=== PATIENT | male | born 1935 | race Caucasian/White ===

== ENCOUNTER 2016-11-16 14:03 | Inpatient (IN) | payer MEDICARE, BC ==
[~2016-11-16] VITALS: Ht 177.8 cm; Wt 104.6 kg
[~2016-11-16 14:03] MED LIST: 1-ME1LIQ PO; B-COTAB41 PO; CLOP75 PO; COZA50TA PO
[2016-11-16 14:13] VITALS: BP 140/69; PULSE 60; RESP 18; TEMP 97.9; O2SAT 98
[2016-11-16] MEDS ORDERED: PLAV75TA29 PO (14:27)
[2016-11-16] MEDS ORDERED: LOSA50TA PO (14:27)
[2016-11-16] MEDS ORDERED: AMLO10TA2 PO (14:27)
--- NOTE | 2016-11-16 15:05 | PD ---
HPI Chief Complaint: Fall Time Seen by Provider: 14:57 Travel History International Travel<30 days: No Contact w/Intl Traveler<30days: No Traveled to known affect area: No History of Present Illness HPI This 81-year-old male is complaining of left-sided abdominal pain. He says that around 1:00 this afternoon he fell and landed on his left side. He feels like his left elbow went into this left side of his abdomen. Having a lot of pain in his abdomen since the fall. He feels like his abdomen has gotten a bit distended. He does take Plavix. He had an endarterectomy done 2 years ago and has been on Plavix since then. 2 years ago he had a fall and injured his right kidney and was urinating blood. 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) Neurologic: No Psychiatric: Yes (CLAUSTROPHOBIC) Reproductive: No Respiratory: Yes (SINUSITIS) Immunizations Current: Yes Thyroid Disease: No Tetanus Vaccination: < 5 Years Influenza Vaccination: No Past Surgical History Abdominal Surgery: No Body Medical Devices: DENTAL IMPLANTS Cardiac Surgery: Yes (ENDARECTOMY CAROTID RT) Ear Surgery: No Endocrine Surgery: No Eye Surgery: Yes Gynecologic Surgery: No Joint Replacement: No Neurologic Surgery: No Oral Surgery: Yes (SINUS SURGERY; DENTAL IMPLANTS) Pacemaker: No Thoracic Surgery: No Tonsillectomy: Yes Other Surgery: Yes (OLFACTORY NERVE) Social History Alcohol Use: Yes (2 DAILY) Tobacco Use: No (quit 1986) Substance Use: No Allergies-Medications (Allergen,Severity, Reaction): Coded Allergies: No Known Allergies (Verified , 11/16/16) Reported Meds & Prescriptions Reported Meds & Active Scripts Active Reported Plavix (Clopidogrel Bisulfate) 75 Mg Tab 75 Mg PO DAILY Amlodipine (Amlodipine Besylate) 10 Mg Tab 10 Mg PO DAILY Losartan (Losartan Potassium) 50 Mg Tab 50 Mg PO DAILY Review of Systems General / Constitutional: No: Fever, Chills Eyes: No: Diploplia HENT: No: Headaches, Vertigo Cardiovascular: No: Chest Pain or Discomfort, Palpitations Respiratory: No: Cough, Shortness of Breath Gastrointestinal: Positive: Nausea Genitourinary: No: Nocturia Musculoskeletal: No: Myalgias Skin: No Rash, No Itching Neurologic: No: Syncope Endocrine: No: Heat Intolerance, Cold Intolerance Physical Exam Narrative GENERAL: Well-developed male. Initial pulse is 60 with blood pressure 140/69 SKIN: Focused skin assessment warm/dry. HEAD: Atraumatic. Normocephalic. EYES: Pupils equal and round. No scleral icterus. No injection or drainage. ENT: No nasal bleeding or discharge. Mucous membranes pink and moist. NECK: Trachea midline. No JVD. CARDIOVASCULAR: Regular rate and rhythm. No murmur appreciated. RESPIRATORY: No accessory muscle use. Clear to auscultation. Breath sounds equal bilaterally. GASTROINTESTINAL: Abdomen there is tenderness greatest in the left midabdomen. There is no rigidity. MUSCULOSKELETAL: No obvious deformities. No clubbing. No cyanosis. No edema. NEUROLOGICAL: Awake and alert. No obvious cranial nerve deficits. Motor grossly within normal limits. Normal speech. PSYCHIATRIC: Appropriate mood and affect; insight and judgment normal. Data Data Last Documented VS Vital Signs Date Time Temp Pulse Resp B/P Pulse Ox O2 Delivery O2 Flow Rate FiO2 11/16/16 15:30 67 18 102/61 97 Room Air 11/16/16 14:13 97.9 Orders Complete Blood Count With Diff (11/16/16 15:02) Comprehensive Metabolic Panel (11/16/16 15:02) Prothrombin Time / Inr (Pt) (11/16/16 15:02) Act Partial Throm Time (Ptt) (11/16/16 15:02) Urinalysis - C+S If Indicated (11/16/16 15:02) Type And Screen (11/16/16 15:02) Ct Abd/Pel W Iv Contrast(Rout) (11/16/16 15:02) Sodium Chlor 0.9% 1000 Ml Inj (Ns 1000 M (11/16/16 15:15) Ondansetron Inj (Zofran Inj) (11/16/16 15:45) Labs Laboratory Tests Test 11/16/16 15:00 White Blood Count 6.4 TH/MM3 Red Blood Count 3.89 MIL/MM3 Hemoglobin 13.0 GM/DL Hematocrit 38.5 % Mean Corpuscular Volume 99.2 FL Mean Corpuscular Hemoglobin 33.4 PG Mean Corpuscular Hemoglobin 33.7 % Concent Red Cell Distribution Width 13.0 % Platelet Count 187 TH/MM3 Mean Platelet Volume 7.1 FL Neutrophils (%) (Auto) 81.6 % Lymphocytes (%) (Auto) 11.4 % Monocytes (%) (Auto) 5.6 % Eosinophils (%) (Auto) 0.9 % Basophils (%) (Auto) 0.5 % Neutrophils # (Auto) 5.2 TH/MM3 Lymphocytes # (Auto) 0.7 TH/MM3 Monocytes # (Auto) 0.4 TH/MM3 Eosinophils # (Auto) 0.1 TH/MM3 Basophils # (Auto) 0.0 TH/MM3 CBC Comment DIFF FINAL Differential Comment MDM Medical Decision Making Medical Screen Exam Complete: Yes Emergency Medical Condition: Yes Medical Record Reviewed: Yes Differential Diagnosis Differential includes contusion, intra-abdominal hemorrhage Narrative Course Blood work and a CT scan have been ordered. Our CAT scanner is not operational at this time and the patient will be transferred to [facility] emergency department. He is complaining of ongoing pain while in the ER. He feels like his abdomen has become more distended than usual. Diagnosis Primary Impression: abdominal wall contusion, possible intra-abdominal hemorrhage Disposition: 70 TRANSFER TO OTHER FACILITY Fabricio Boyle MD Nov 16, 2016 15:05
[2016-11-16] MEDS ORDERED: SODIUM CHLOR 0.9% 1000 ML INJ 1,000 ML IV SCH (15:15)
[2016-11-16 15:30] VITALS: BP 102/61; PULSE 67; RESP 18; O2SAT 97
[2016-11-16] MEDS ORDERED: ONDANSETRON HCL 4 MG/2 ML VIAL IV PUSH ONE ×2 (15:45→20:30)
[2016-11-16 15:57] LABS: AUTOMATED NEUTROPHIL # 5.2 TH/MM3 (1.8-7.7); BASOPHIL % 0.5 % (0.0-2.0); EOSINOPHIL # 0.1 TH/MM3 (0-0.4); EOSINOPHIL % 0.9 % (0.0-4.0); HEMATOCRIT 38.5 % (39.0-51.0); HEMO FLAGS DIFF FINAL; LYMPH % 11.4 % (9.0-44.0); LYMPHOCYTE # 0.7 TH/MM3 (1.0-4.8); MEAN CELL VOLUME 99.2 FL (80.0-100.0); MEAN CORPUSCULAR HEMOGLOBIN 33.4 PG (27.0-34.0); MEAN CORPUSCULAR HGB CONC 33.7 % (32.0-36.0); MONO % 5.6 % (0.0-8.0); NEUT % 81.6 % (16.0-70.0); PLATELET COUNT 187 TH/MM3 (150-450); RED BLOOD COUNT 3.89 MIL/MM3 (4.50-5.90); WHITE BLOOD COUNT 6.4 TH/MM3 (4.0-11.0)
[2016-11-16 16:05] LABS: CHLORIDE 107 MEQ/L (98-107); POTASSIUM 4.5 MEQ/L (3.5-5.1); SODIUM (NA) 142 MEQ/L (136-145)
[2016-11-16 16:08] LABS: ANION GAP 10 MEQ/L (5-15); BICARBONATE 24.7 MEQ/L (21.0-32.0)
[2016-11-16 16:09] LABS: BLOOD UREA NITROGEN 19 MG/DL (7-18); PROTHROMBIN TIME - PATIENT 11.1 SEC (9.8-11.6)
[2016-11-16 16:11] LABS: ALT (GPT) 41 U/L (12-78); AST (GOT) 34 U/L (15-37)
[2016-11-16 16:12] LABS: GLOMERULAR FILTRATION RATE 45 ML/MIN (>89)
[2016-11-16 16:13] LABS: TOTAL BILIRUBIN ADULT 0.9 MG/DL (0.2-1.0)
[2016-11-16 16:14] LABS: ALKALINE PHOSPHATASE 52 U/L (45-117)
[2016-11-16 17:13] VITALS: BP 116/63; PULSE 78; RESP 20; TEMP 97.7; O2SAT 98
[2016-11-16] MEDS ORDERED: IOHEXOL 350 MG/ML 10 ML VIAL (for RAD DIAG) IV ONE (18:10)
--- NOTE | 2016-11-16 18:40 | PD ---
Physical Exam Date Seen by Provider: Nov 16, 2016 Data Data Last Documented VS Vital Signs Date Time Temp Pulse Resp B/P Pulse Ox O2 Delivery O2 Flow Rate FiO2 11/16/16 17:13 97.7 78 20 116/63 98 Room Air Orders Complete Blood Count With Diff (11/16/16 15:02) Comprehensive Metabolic Panel (11/16/16 15:02) Prothrombin Time / Inr (Pt) (11/16/16 15:02) Act Partial Throm Time (Ptt) (11/16/16 15:02) Urinalysis - C+S If Indicated (11/16/16 15:02) Type And Screen (11/16/16 15:02) Ct Abd/Pel W Iv Contrast(Rout) (11/16/16 15:02) Sodium Chlor 0.9% 1000 Ml Inj (Ns 1000 M (11/16/16 15:15) Ondansetron Inj (Zofran Inj) (11/16/16 15:45) Iohexol 350 Inj (Omnipaque 350 Inj) (11/16/16 18:10) Labs Laboratory Tests Test 11/16/16 15:00 White Blood Count 6.4 TH/MM3 Red Blood Count 3.89 MIL/MM3 Hemoglobin 13.0 GM/DL Hematocrit 38.5 % Mean Corpuscular Volume 99.2 FL Mean Corpuscular Hemoglobin 33.4 PG Mean Corpuscular Hemoglobin 33.7 % Concent Red Cell Distribution Width 13.0 % Platelet Count 187 TH/MM3 Mean Platelet Volume 7.1 FL Neutrophils (%) (Auto) 81.6 % Lymphocytes (%) (Auto) 11.4 % Monocytes (%) (Auto) 5.6 % Eosinophils (%) (Auto) 0.9 % Basophils (%) (Auto) 0.5 % Neutrophils # (Auto) 5.2 TH/MM3 Lymphocytes # (Auto) 0.7 TH/MM3 Monocytes # (Auto) 0.4 TH/MM3 Eosinophils # (Auto) 0.1 TH/MM3 Basophils # (Auto) 0.0 TH/MM3 CBC Comment DIFF FINAL Differential Comment Prothrombin Time 11.1 SEC Prothromb Time International 1.0 RATIO Ratio Activated Partial 24.0 SEC Thromboplast Time Sodium Level 142 MEQ/L Potassium Level 4.5 MEQ/L Chloride Level 107 MEQ/L Carbon Dioxide Level 24.7 MEQ/L Anion Gap 10 MEQ/L Blood Urea Nitrogen 19 MG/DL Creatinine 1.50 MG/DL Estimat Glomerular Filtration 45 ML/MIN Rate Random Glucose 172 MG/DL Calcium Level 8.7 MG/DL Total Bilirubin 0.9 MG/DL Aspartate Amino Transf 34 U/L (AST/SGOT) Alanine Aminotransferase 41 U/L (ALT/SGPT) Alkaline Phosphatase 52 U/L Total Protein 6.0 GM/DL Albumin 3.2 GM/DL Blood Type O POSITIVE Antibody Screen NEGATIVE [facility] Medical Record Reviewed: Yes Supervised Visit with NICOLE: No Narrative Course patient was a ER-ER transfer from [facility]. Patient is a 81-year-old male who presents to emergency room with complaints of abdominal pain. Patient reports that around 1 PM this afternoon, he tripped and fell on sidewalk, his left elbow went into his abdomen. Patient reports that his abdomen has become distended and he has extreme pain since his fall. Patient reports that he does take Plavix as he has history of CVAs in the past, reports history of endartectomy 2 years ago. Patient was sent to [facility] for CT of his abdomen and pelvis as the CT machine was non[facility]ing [facility]. CBC & BMP Diagram 11/16/16 15:00 Patient is uncomfortable and does have peritonitis on exam. CT pending ct of abd/pelvis: mesenteric hematoma involving splenic flexure, patient also with incidental finding of AAA - copy of ct report given to patient case reviewed with dr. hager who will admit and see patient Critical Care Narrative Aggregate critical care time was 30 minutes. Time to perform other separately billable procedures was not included in the critical care time. My time did not include minutes spent treating any other patients simultaneously or on activities that did not directly contribute to the patient's treatment. The services I provided to this patient were to treat and/or prevent clinically significant deterioration that could result in: , decompensation, deterioration I provided critical care services requiring my management, as noted below: Chart data review, documentation time, medication orders and management, vital sign assessments/reviewing monitor data, ordering and reviewing lab tests, ordering and interpreting/reviewing x-rays and diagnostic studies, care of the patient and discussion of the patient with the admitting physicians. Diagnosis Primary Impression: abdominal wall contusion, possible intra-abdominal hemorrhage Additional Impression: Traumatic mesenteric hematoma Admitting Information Admitting Physician Requests: Admit Disposition: 70 TRANSFER TO OTHER FACILITY Adelita Preciado DO Nov 16, 2016 18:40
--- NOTE | 2016-11-16 18:44 | RADRPT ---
EXAM DATE/TIME: 11/16/2016 18:02 [facility] COMPARISON: CT ABDOMEN & PELVIS W CONTRAST, November 23, 2014, 5:25. INDICATIONS : Falls with abdomen pain. IV CONTRAST: 70 cc Omnipaque 350 (iohexol) IV ORAL CONTRAST: No oral contrast ingested. RADIATION DOSE: 11.38 CTDIvol (mGy) MEDICAL HISTORY : Hypertension. SURGICAL HISTORY : None. ENCOUNTER: Initial ACUITY: 1 day PAIN SCALE: 5/10 LOCATION: abdomen TECHNIQUE: Volumetric scanning of the abdomen and pelvis was performed. Using automated exposure control and ad justment of the mA and/or kV according to patient size, radiation dose was kept as low as reasonably achievable to obtain optimal diagnostic quality images. FINDINGS: LOWER LUNGS: The visualized lung bases are stable. A 4 mm benign granuloma is unchanged within the right lower lob e. Scarring is noted within the right middle lobe. No acute infiltrate or effusion. Coronary artery a therosclerotic calcifications. LIVER: Homogeneous density without lesion. No laceration. There is no dilation of the biliary tree. A small solitary calcified gallstone within a decompressed gallbladder. A small volume of ascitic fluid is se en adjacent to the liver and spleen. Hounsfield units of a fluid is 30.. SPLEEN: Normal size without lesion. No laceration. PANCREAS: Within normal limits. KIDNEYS: There is mild hydronephrosis and proximal hydroureter on the right. There is stranding of the fat wit hin the renal pelvis. A 2 mm weakly calcified proximal ureteral stone is observed. Left kidney is unr emarkable. ADRENAL GLANDS: Within normal limits. VASCULAR: A 3.6 x 3.1 cm abdominal aortic aneurysms is seen within the infrarenal aorta. This is stable. BOWEL/MESENTERY: There is increased density involving the mesentery adjacent to the splenic flexure. There is fluid se en tracking posteriorly into the left paracolic gutter from this location. Given history of trauma th is is felt to relate to a mesenteric hematoma. The bowel structures are otherwise unremarkable. ABDOMINAL WALL: Within normal limits. RETROPERITONEUM: There is no lymphadenopathy. BLADDER: No wall thickening or mass. REPRODUCTIVE: Within normal limits. INGUINAL: There is no lymphadenopathy or hernia. MUSCULOSKELETAL: Within normal limits for patient age. CONCLUSION: 1. Mesenteric hematoma involving the splenic flexure with small volume free fluid within the peritone al cavity. No laceration involving the liver or spleen observed. 2. 2 mm mildly obstructing proximal right ureteral stone. There is stranding of the perinephric fat s uggesting an inflammatory process but no perinephric fluid collections or abscess. 3. Stable granuloma right lung base. 4. 3.6 x 3.1 cm AAA. 5. Cholelithiasis. Scott King Jr., MD on November 16, 2016 at 18:34 Board Certified Radiologist. This report was verified electronically.
[2016-11-16] MEDS ORDERED: MORPHINE SULFATE 4 MG/ML INJ IV PUSH ONE (19:15)
[2016-11-16 19:23] VITALS: BP 165/75; PULSE 84; RESP 20; O2SAT 98
[2016-11-16] MEDS ORDERED: SODIUM CHLORIDE 0.9% FLUSH 10 ML FLUSH IV FLUSH PRN (20:00)
[2016-11-16] MEDS: SODIUM CHLOR 0.9% 1000 ML INJ 1,000 ML IV SCH (20:00)
[2016-11-16] MEDS ORDERED: PANTOPRAZOLE SODIUM 40 MG VIAL IV SCH (20:00)
[2016-11-16] MEDS ORDERED: oxyCODONE/ACETAMINOPHEN 5 MG/325 MG TAB PO PRN (20:00)
[2016-11-16] MEDS ORDERED: Post-op Orders (for Pharmacy) MISC XX ONE (20:00)
[2016-11-16] MEDS ORDERED: MORPHINE SULFATE 4 MG/ML INJ IV PRN (20:00)
[2016-11-16] MEDS ORDERED: NALOXONE HCL 0.4 MG/ML AMP IV PRN (20:00)
[2016-11-16] MEDS ORDERED: ONDANSETRON HCL 4 MG/2 ML VIAL IV PRN (20:00)
[2016-11-16] MEDS: SODIUM CHLORIDE 0.9% FLUSH 10 ML FLUSH IV FLUSH SCH (20:52)
[2016-11-16] MEDS: DOCUSATE SODIUM 100 MG CAP PO SCH (20:57)
--- NOTE | 2016-11-16 22:41 | MH ---
cc: BRITTNEY GUTIERREZ MD DATE OF ADMISSION 11/16/2016 REASON FOR ADMISSION Mesenteric artery bleed. HISTORY OF PRESENT ILLNESS A 81-year-old male who is known to me from previous encounters (I did his carotid artery surgery) was walking today on the sidewalk and fell forward, tripped landed belly down and, according to him, sort of jammed the elbow into his abdomen. The patient then realizes he was becoming more distended and having more pain. The patient presented to the emergency room, hence, the admission. The patient was initially at [facility], however, CT was broken there so he had to be transferred here. PAST MEDICAL HISTORY 1. Hypertension, 2. Arthritis, 3. sinusitis 4. Bilateral carotid stenosis, 5. Depression 6. Hypercholesteremia 7. Stroke PAST SURGICAL HISTORY 1. Carotid endarterectomy 2. Dental implant 3. Some sort of sinus surgery 4. Cataract removal. SOCIAL HISTORY The patient drinks socially. Does not smoke. ALLERGIES No allergies. MEDICATIONS 1. Amlodipine 2. Losartan. 3. Plavix which by the way I stopped PHYSICAL EXAMINATION GENEAL: A pleasant 81-year-old gentleman in no acute distress. HEENT: Normocephalic. No trauma to the head. Pupils equally reactive. Extraocular muscles intact. No hemotympanum. No Hardy sign or raccoon's eyes. NECK: Supple, bilateral carotid pulses. CHEST: Bilateral breath sounds decreased over both lung patino. Some mild to moderate emphysema. HEART: Regular rhythm. ABDOMEN: Soft, distended, hypoactive bowel sounds. No rebound or guarding. However, the patient is tender in all four quadrants, mainly in the left upper and lower quadrant. Some tympanism. Groins are normal. EXTREMITIES: Within normal limits. BACK: Normal. NEUROLOGIC: The patient is fully intact. IMPRESSION/RECOMMENDATIONS This 81-year-old gentleman fell forward and, in the process, sustained blunt injury to the abdomen consisting of some bleeding into the mesentery and other mesenteric vessels of the descending and transverse colon. Blood is collected sort of around the spleen and is leaking into the lower abdomen, probably about 200 mL. This is sufficient to cause peritoneal signs. There is no free air or anything suggesting intestinal perforation. The patient will be kept in the hospital for observation. Considering he is on Plavix and elderly and we will see which way this goes. Most likely the patient will not require any surgery and he will recover without consequences. On the other hand, if the patient worsens then we will deal with it accordingly. Critical care time 38 minutes. Brittney SHAY/ /8:06 PM /10:22 PM
[2016-11-16 23:01] VITALS: BP 187/74; PULSE 79; RESP 18; TEMP 95.5; O2SAT 95
[2016-11-16 23:39] VITALS: BP 130/62; PULSE 77; RESP 18; TEMP 97.3; O2SAT 93
[2016-11-17 03:28] VITALS: BP 135/60; PULSE 72; RESP 18; TEMP 98.2; O2SAT 65
[2016-11-17 07:10] LABS: AUTOMATED NEUTROPHIL # 6.5 TH/MM3 (1.8-7.7); BASOPHIL # 0.1 TH/MM3 (0-0.2); BASOPHIL % 0.9 % (0.0-2.0); EOSINOPHIL % 0.3 % (0.0-4.0); HEMO FLAGS DIFF FINAL; LYMPH % 13.6 % (9.0-44.0); LYMPHOCYTE # 1.2 TH/MM3 (1.0-4.8); MEAN CORPUSCULAR HEMOGLOBIN 34.2 PG (27.0-34.0); MEAN CORPUSCULAR HGB CONC 34.5 % (32.0-36.0); MONO % 8.5 % (0.0-8.0); NEUT % 76.7 % (16.0-70.0); PLATELET COUNT 155 TH/MM3 (150-450); RED BLOOD COUNT 3.43 MIL/MM3 (4.50-5.90); RED CELL DISTRIBUTION WIDTH 13.9 % (11.6-17.2); WHITE BLOOD COUNT 8.5 TH/MM3 (4.0-11.0)
[2016-11-17 07:35] LABS: BICARBONATE 24.7 MEQ/L (21.0-32.0); POTASSIUM 4.5 MEQ/L (3.5-5.1)
[2016-11-17 08:02] VITALS: BP 133/58; PULSE 80; RESP 18; TEMP 98.4; O2SAT 93
[2016-11-17] MEDS: SODIUM CHLORIDE 0.9% FLUSH 10 ML FLUSH IV FLUSH SCH (09:00)
[2016-11-17] MEDS ORDERED: LOSARTAN 50 MG TAB PO SCH (09:00)
[2016-11-17] MEDS: DOCUSATE SODIUM 100 MG CAP PO SCH (10:09)
[2016-11-17] MEDS: SODIUM CHLOR 0.9% 1000 ML INJ 1,000 ML IV SCH (12:40)
[2016-11-17 12:48] VITALS: RESP 18
--- NOTE | 2016-11-17 17:11 | PD.CAR.PN ---
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 no masses No rebound no guarding At this point patient can be discharged home and is instructed to follow up as necessary Objective: Vital Signs Date Time Temp Pulse Resp B/P Pulse Ox O2 Delivery O2 Flow Rate FiO2 11/17/16 12:48 18 11/17/16 08:02 98.4 80 18 133/58 93 11/17/16 03:28 98.2 72 18 135/60 65 11/16/16 23:39 97.3 77 18 130/62 93 11/16/16 23:01 95.5 79 18 187/74 95 11/16/16 19:23 84 20 165/75 98 Room Air 11/16/16 17:13 97.7 78 20 116/63 98 Room Air 11/16/16 17:13 99 Room Air Labs: Laboratory Tests Test 11/17/16 06:36 White Blood Count 8.5 TH/MM3 (4.0-11.0) Red Blood Count 3.43 MIL/MM3 (4.50-5.90) Hemoglobin 11.7 GM/DL (13.0-17.0) Hematocrit 34.0 % (39.0-51.0) Mean Corpuscular Volume 99.0 FL (80.0-100.0) Mean Corpuscular Hemoglobin 34.2 PG (27.0-34.0) Mean Corpuscular Hemoglobin 34.5 % Concent (32.0-36.0) Red Cell Distribution Width 13.9 % (11.6-17.2) Platelet Count 155 TH/MM3 (150-450) Mean Platelet Volume 7.6 FL (7.0-11.0) Neutrophils (%) (Auto) 76.7 % (16.0-70.0) Lymphocytes (%) (Auto) 13.6 % (9.0-44.0) Monocytes (%) (Auto) 8.5 % (0.0-8.0) Eosinophils (%) (Auto) 0.3 % (0.0-4.0) Basophils (%) (Auto) 0.9 % (0.0-2.0) Neutrophils # (Auto) 6.5 TH/MM3 (1.8-7.7) Lymphocytes # (Auto) 1.2 TH/MM3 (1.0-4.8) Monocytes # (Auto) 0.7 TH/MM3 (0-0.9) Eosinophils # (Auto) 0.0 TH/MM3 (0-0.4) Basophils # (Auto) 0.1 TH/MM3 (0-0.2) CBC Comment DIFF FINAL Differential Comment Sodium Level 139 MEQ/L (136-145) Potassium Level 4.5 MEQ/L (3.5-5.1) Chloride Level 105 MEQ/L (98-107) Carbon Dioxide Level 24.7 MEQ/L (21.0-32.0) Anion Gap 9 MEQ/L (5-15) Blood Urea Nitrogen 26 MG/DL (7-18) Creatinine 1.88 MG/DL (0.60-1.30) Estimat Glomerular Filtration 35 ML/MIN (>89) Rate Random Glucose 118 MG/DL (74-106) Calcium Level 8.8 MG/DL (8.5-10.1) Result Diagram: 11/17/16 0636 11/17/16 0636 Brittney Esteves MD Nov 17, 2016 17:11
[2016-11-17] MEDS ORDERED: OXYC1TAB63 PO (17:14)
[2016-11-17] MEDS ORDERED: LACTULOSE SYRUP 20 GM/30 ML CUP PO ONE (17:15)
[2016-11-18] MEDS ORDERED: PLAV75TA29 PO (21:22)
== END 2016-11-17 17:41 | disposition home or self-care (01) | DRG 914 ==
LOC: PHED 14:03 → NEDA 19:07 → N06B 22:29
PROVIDERS: ADMIT Surgery; ATTEND Surgery
DX: S36.898A Other injury of other intra-abdominal organs, initial encounter (principal); I10 Essential (primary) hypertension; W01.0XXA Fall on same level from slipping, tripping and stumbling without subsequent striking against object, initial encounter; Z79.02 Long term (current) use of antithrombotics/antiplatelets; M19.90 Unspecified osteoarthritis, unspecified site; F32.9 Major depressive disorder, single episode, unspecified; E78.00 Pure hypercholesterolemia, unspecified; Z86.73 Personal history of transient ischemic attack (TIA), and cerebral infarction without residual deficits; Z87.891 Personal history of nicotine dependence; I71.4 Abdominal aortic aneurysm, without rupture
CPT/HCPCS: 74177; 80048; 80053; 85025; 85610; 85730; 86850; 86900; 86901; 96374; 96375; 96376; C9113; J2270; J2405; J7030; Q9967

== ENCOUNTER 2016-11-18 21:00 | Inpatient (IN) | payer MEDICARE, BC ==
[~2016-11-18] VITALS: Ht 177.8 cm; Wt 100.0 kg
[~2016-11-18 21:00] MED LIST changes: -1-ME1LIQ PO; +AMLO10TA2 PO; -B-COTAB41 PO; -CLOP75 PO; -COZA50TA PO; +LOSA50TA PO; +OXYC1TAB63 PO
[2016-11-18 21:01] VITALS: BP 135/65; PULSE 89; RESP 20; TEMP 98.3; O2SAT 96
[2016-11-18 21:12] VITALS: BP 157/74; PULSE 100; RESP 18; TEMP 98.1; O2SAT 95
[2016-11-18 21:18] VITALS: BP 146/68; PULSE 85; RESP 18; O2SAT 96
[2016-11-18] MEDS ORDERED: SODIUM CHLOR 0.9% 1000 ML INJ 1,000 ML IV SCH (21:18)
[2016-11-18 21:21] VITALS: O2SAT 96
[2016-11-18] MEDS ORDERED: PLAV75TA29 PO (21:22)
--- NOTE | 2016-11-18 21:22 | PD ---
HPI Chief Complaint: Abdominal Pain Time Seen by Provider: 21:12 Travel History International Travel<30 days: No Contact w/Intl Traveler<30days: No Traveled to known affect area: No History of Present Illness HPI 81-year-old male who was admitted on 11/16/16 after sustaining a mesenteric hematoma after a trip and fall, discharged yesterday, here today for abdominal pain, nausea, vomiting, and diarrhea. The patient called trauma surgeon Dr. Esteves to inform him of his symptoms, and he recommended that the patient present to the emergency department for lab work, CT abdomen pelvis, and likely admission for ongoing symptoms. Patient is on Plavix. He denies any new injuries. States that his emesis and bowel movements have been greenish, nonbloody. Patient has diffuse abdominal pain and distention, with the majority of his pain in his left upper quadrant. Pain is moderate to severe, constant, worse with movement and palpation as well as deep inspiration. No chest pain. 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) Neurologic: Yes Psychiatric: Yes (CLAUSTROPHOBIC) Reproductive: No Respiratory: Yes (SINUSITIS) Immunizations Current: Yes Thyroid Disease: No Past Surgical History Abdominal Surgery: No Body Medical Devices: DENTAL IMPLANTS Cardiac Surgery: Yes (RIGHT CAROTID ENDARECTOMY) Ear Surgery: No Endocrine Surgery: No Eye Surgery: Yes (CATARACT) Gynecologic Surgery: No Joint Replacement: No Neurologic Surgery: No Oral Surgery: Yes (SINUS SURGERY; DENTAL IMPLANTS) Pacemaker: No Thoracic Surgery: No Tonsillectomy: Yes Other Surgery: Yes (OLFACTORY NERVE) Social History Alcohol Use: Yes (2 DAILY) Tobacco Use: No (quit 1986) Substance Use: No Allergies-Medications (Allergen,Severity, Reaction): Coded Allergies: No Known Allergies (Verified , 11/18/16) Reported Meds & Prescriptions Reported Meds & Active Scripts Active Oxycodone-Acetaminophen 5-325 mg Tab 1 Tab PO Q4H PRN Reported Plavix (Clopidogrel Bisulfate) 75 Mg Tab 75 Mg PO Amlodipine (Amlodipine Besylate) 10 Mg Tab 10 Mg PO DAILY Losartan (Losartan Potassium) 50 Mg Tab 50 Mg PO DAILY Review of Systems Except as stated in HPI: all other systems reviewed are Neg Physical Exam Narrative GENERAL: Well-developed, well-nourished, awake, alert, no apparent distress. SKIN: Focused skin assessment warm/dry. Ecchymosis to left elbow and hand. HEAD: Atraumatic. Normocephalic. EYES: Pupils equal and round. No scleral icterus. No injection or drainage. ENT: No nasal bleeding or discharge. Mucous membranes pink and moist. NECK: Trachea midline. No JVD. CARDIOVASCULAR: Regular rate and rhythm. No murmur appreciated. RESPIRATORY: No accessory muscle use. Clear to auscultation. Breath sounds equal bilaterally. GASTROINTESTINAL: Abdomen soft, mild distention, moderate diffuse tenderness, no peritoneal signs. MUSCULOSKELETAL: No obvious deformities. No clubbing. No cyanosis. No edema. NEUROLOGICAL: Awake and alert. No obvious cranial nerve deficits. Motor grossly within normal limits. Normal speech. PSYCHIATRIC: Appropriate mood and affect; insight and judgment normal. Data Data Last Documented VS Vital Signs Date Time Temp Pulse Resp B/P Pulse Ox O2 Delivery O2 Flow Rate FiO2 11/19/16 00:38 110 18 165/74 96 Room Air 11/18/16 21:12 98.1 Orders Complete Blood Count With Diff (11/18/16 21:18) Comprehensive Metabolic Panel (11/18/16 21:18) Lipase (11/18/16 21:18) Prothrombin Time / Inr (Pt) (11/18/16 21:18) Act Partial Throm Time (Ptt) (11/18/16 21:18) Ct Abd/Pel W Iv Contrast(Rout) (11/18/16 21:18) Iv Access Insert/Monitor (11/18/16 21:18) Ecg Monitoring (11/18/16 21:18) Oximetry (11/18/16 21:18) Ondansetron Inj (Zofran Inj) (11/18/16 21:30) Sodium Chlor 0.9% 1000 Ml Inj (Ns 1000 M (11/18/16 21:18) Sodium Chloride 0.9% Flush (Ns Flush) (11/18/16 21:30) Oxycodone-Acetamin 5-325 Mg (Percocet (11/18/16 21:30) Metoclopramide Inj (Reglan Inj) (11/18/16 23:00) Hydromorphone Pf Inj (Dilaudid Pf Inj) (11/19/16 00:15) Iodixanol 320 Inj (Rad Ct) (Visipaque 32 (11/19/16 00:18) Ondansetron Inj (Zofran Inj) (11/19/16 00:30) Insert Ng Tube (11/19/16 00:58) Labs Laboratory Tests Test 11/18/16 22:22 White Blood Count 4.3 TH/MM3 Red Blood Count 3.44 MIL/MM3 Hemoglobin 11.6 GM/DL Hematocrit 34.2 % Mean Corpuscular Volume 99.6 FL Mean Corpuscular Hemoglobin 33.8 PG Mean Corpuscular Hemoglobin 34.0 % Concent Red Cell Distribution Width 13.3 % Platelet Count 173 TH/MM3 Mean Platelet Volume 8.0 FL Neutrophils (%) (Auto) 76.4 % Lymphocytes (%) (Auto) 10.4 % Monocytes (%) (Auto) 11.8 % Eosinophils (%) (Auto) 0.9 % Basophils (%) (Auto) 0.5 % Neutrophils # (Auto) 3.3 TH/MM3 Lymphocytes # (Auto) 0.4 TH/MM3 Monocytes # (Auto) 0.5 TH/MM3 Eosinophils # (Auto) 0.0 TH/MM3 Basophils # (Auto) 0.0 TH/MM3 CBC Comment DIFF FINAL Differential Comment Prothrombin Time 10.5 SEC Prothromb Time International 1.0 RATIO Ratio Activated Partial 27.0 SEC Thromboplast Time Sodium Level 138 MEQ/L Potassium Level 4.3 MEQ/L Chloride Level 101 MEQ/L Carbon Dioxide Level 25.7 MEQ/L Anion Gap 11 MEQ/L Blood Urea Nitrogen 31 MG/DL Creatinine 1.87 MG/DL Estimat Glomerular Filtration 35 ML/MIN Rate Random Glucose 144 MG/DL Calcium Level 9.0 MG/DL Total Bilirubin 1.2 MG/DL Aspartate Amino Transf 25 U/L (AST/SGOT) Alanine Aminotransferase 31 U/L (ALT/SGPT) Alkaline Phosphatase 41 U/L Total Protein 6.7 GM/DL Albumin 3.5 GM/DL Lipase 107 U/L MDM Medical Decision Making Medical Screen Exam Complete: Yes Emergency Medical Condition: Yes Differential Diagnosis Mesenteric hematoma, peritonitis, anemia, metabolic abnormality Narrative Course Vital signs reviewed. CBC shows WBC 4.3, hemoglobin 11.6, hematocrit 34.2, platelets 173. CMP is remarkable for BUN 31, creatinine 1.87, GFR 35, otherwise unremarkable. Lipase is 107. CT abdomen pelvis: No change in fluid within the peritoneal cavity and mesentery contusion on the left, however slight degree of partial SBO has developed. Patient has had several episodes of nausea and vomiting while in the emergency department and has received 3 doses of antiemetics. After CT abdomen and pelvis report, NG tube was placed to low intermittent suction. Case discussed with trauma surgeon Dr. Esteves who would like to admit the patient to his service. Patient made aware of all findings and plan for admission. Diagnosis Primary Impression: Partial small bowel obstruction Admitting Information Admitting Physician Requests: Admit Juan Manuel Arredondo MD Nov 18, 2016 21:22
[2016-11-18] MEDS ORDERED: ONDANSETRON HCL 4 MG/2 ML VIAL IVP ONE (21:30)
[2016-11-18] MEDS ORDERED: SODIUM CHLORIDE 0.9% FLUSH 10 ML FLUSH IV FLUSH PRN (21:30)
[2016-11-18] MEDS ORDERED: oxyCODONE/ACETAMINOPHEN 5 MG/325 MG TAB PO ONE (21:30)
[2016-11-18 22:41] LABS: AUTOMATED NEUTROPHIL # 3.3 TH/MM3 (1.8-7.7); BASOPHIL % 0.5 % (0.0-2.0); EOSINOPHIL % 0.9 % (0.0-4.0); HEMATOCRIT 34.2 % (39.0-51.0); HEMO FLAGS DIFF FINAL; LYMPH % 10.4 % (9.0-44.0); LYMPHOCYTE # 0.4 TH/MM3 (1.0-4.8); MEAN CELL VOLUME 99.6 FL (80.0-100.0); MEAN CORPUSCULAR HEMOGLOBIN 33.8 PG (27.0-34.0); MONO % 11.8 % (0.0-8.0); NEUT % 76.4 % (16.0-70.0); PLATELET COUNT 173 TH/MM3 (150-450); RED BLOOD COUNT 3.44 MIL/MM3 (4.50-5.90); RED CELL DISTRIBUTION WIDTH 13.3 % (11.6-17.2); WHITE BLOOD COUNT 4.3 TH/MM3 (4.0-11.0)
[2016-11-18 22:49] LABS: PROTHROMBIN TIME - PATIENT 10.5 SEC (9.8-11.6)
[2016-11-18] MEDS ORDERED: METOCLOPRAMIDE HCL 10 MG/2 ML VIAL IV PUSH ONE (23:00)
[2016-11-18 23:08] LABS: ALKALINE PHOSPHATASE 41 U/L (45-117); ALT (GPT) 31 U/L (12-78); ANION GAP 11 MEQ/L (5-15); AST (GOT) 25 U/L (15-37); BICARBONATE 25.7 MEQ/L (21.0-32.0); BLOOD UREA NITROGEN 31 MG/DL (7-18); CHLORIDE 101 MEQ/L (98-107); GLOMERULAR FILTRATION RATE 35 ML/MIN (>89); POTASSIUM 4.3 MEQ/L (3.5-5.1); SODIUM (NA) 138 MEQ/L (136-145); TOTAL BILIRUBIN ADULT 1.2 MG/DL (0.2-1.0)
[2016-11-18 23:52] VITALS: BP 165/74; PULSE 93; RESP 18; O2SAT 96
[2016-11-19] VITALS (7 sets, daily range): BP systolic 132–173; BP diastolic 63–74; PULSE 83–127; RESP 16–18; TEMP 96.4–98.9; O2SAT 92–97
[2016-11-19] MEDS ORDERED: HYDROmorphone HCL PF 1 MG/ML VIAL IV PUSH ONE (00:15)
[2016-11-19] MEDS ORDERED: IODIXANOL 320 MG/ML 10 ML VIAL (for Rad CT) IV ONE (00:18)
[2016-11-19] MEDS ORDERED: ONDANSETRON HCL 4 MG/2 ML VIAL IV PUSH ONE (00:30)
--- NOTE | 2016-11-19 00:52 | RADRPT ---
EXAM DATE/TIME: 11/19/2016 00:15 [facility] COMPARISON: CT ABDOMEN & PELVIS W CONTRAST, November 23, 2014, 5:25. CT ABDOMEN & PELVIS W CONTRAST, November 16, 2016, 18:02. INDICATIONS : Diffuse abdominal pain. IV CONTRAST: 50 cc Visipaque (iodixanol) IV ORAL CONTRAST: No oral contrast ingested. RADIATION DOSE: 16.21 CTDIvol (mGy) MEDICAL HISTORY : Hypertension. Carotid stenosis. CVA. SURGICAL HISTORY : Tonsillectomy. ENCOUNTER: Initial ACUITY: 1 day PAIN SCALE: 8/10 LOCATION: Bilateral abdomen TECHNIQUE: Volumetric scanning of the abdomen and pelvis was performed. Using automated exposure control and ad justment of the mA and/or kV according to patient size, radiation dose was kept as low as reasonably achievable to obtain optimal diagnostic quality images. FINDINGS: Again noted is a gallstone. Slight AAA is present measuring 2.8 x 3.7 cm in AP and transverse di ameters with chronic atherosclerotic calcifications of the aorta. There is slight fluid within the pe ritoneal cavity extending from the perihepatic space and around the spleen down to the pelvis and par acolic gutters not significantly changed. Slight area of mesenteric contusion in left upper quadrant near the splenic flexure has not changed. There are however dilated loops of small bowel not present previously with maximum diameter of 3.1 cm and there appears to be transition to normal size in midpo rtion of the abdomen and distal small bowel loops and terminal ileum are decompressed. Right lower bere ng and right middle lobe nodular densities and scarring are again seen not changed since 2014. Lieberman ry artery calcifications are seen typically seen with CAD and need to be evaluated clinically. There are scattered diverticuli mainly in the sigmoid colon without definite signs of diverticulitis. The r est of the examination has not significantly changed. CONCLUSION: There is no change in fluid within the peritoneal cavity and mesentery contusion on the left, however slight degree of partial small bowel obstruction has developed. Sylvie Joyce MD on November 19, 2016 at 0:42 Board Certified Radiologist. This report was verified electronically.
[2016-11-19] MEDS ORDERED: LORazepam 2 MG/ML VIAL IV PUSH ONE (01:45)
[2016-11-19] MEDS ORDERED: SODIUM CHLORIDE 0.9% FLUSH 10 ML FLUSH IVF PRN (03:15)
[2016-11-19] MEDS: SODIUM CHLORIDE 0.9% FLUSH 10 ML FLUSH IV FLUSH SCH ×2 (07:33→21:00)
--- NOTE | 2016-11-19 13:36 | PD.CAR.PN ---
CVT Progress Note Subjective/Hospital Course: Patient with a persistent ileus after sustaining bleeding into the mesentery of the large bowel into the abdominal cavitY Hemoglobin remains stable at patient is nauseous and some bilious vomiting NG tube was placed last night is drained over a liter off bilious fluid This is a severe ileus versus partial small bowel obstruction Patient is passing gas so is probably ileus due to irritation from the blood Patient is normally fairly rotund but this is distention to has to be obviously addressed On exam patient has abdomen that soft with hypoactive bowel sounds no rebound no guarding no masses Slightly tender in left upper quadrant consistent with a mesenteric hematoma Repeat CAT scan reveals resolving hematoma of the mesentery and air throughout the small and large bowel with ileus Since this insertion of NG tube patient is not nauseous anymore We'll keep patient nothing by mouth on IV fluids and NG tube suction until he opens up Objective: Vital Signs Date Time Temp Pulse Resp B/P Pulse Ox O2 Delivery O2 Flow Rate FiO2 11/19/16 12:00 96.7 90 17 173/74 95 11/19/16 08:45 94 21 11/19/16 08:00 96.4 83 16 136/63 92 11/19/16 04:00 98.9 115 17 132/72 94 11/19/16 03:10 96 21 11/19/16 00:38 110 18 165/74 96 Room Air 11/18/16 23:52 93 18 165/74 96 Room Air 11/18/16 21:21 96 Room Air 11/18/16 21:18 85 18 146/68 96 Room Air 11/18/16 21:18 18 11/18/16 21:12 98.1 100 18 157/74 95 11/18/16 21:01 98.3 89 20 135/65 96 Room Air Result Diagram: 11/18/16222111/18/162221 Brittney Esteves MD Nov 19, 2016 13:36
--- NOTE | 2016-11-19 14:53 | MH ---
cc: MD BRENDA,[facility] DATE OF ADMISSION: 11/19/2016 ADMITTING DIAGNOSIS: Persistent ileus status post intra-abdominal hemorrhage. HISTORY OF PRESENT ILLNESS: This 81-year-old male who is known to me from previous encounters was admitted a few days ago after falling on the sidewalk where he tripped and landed on his belly and jammed is elbow into the abdomen. The patient was more distended with more pain. He was admitted to [place] and on CT scan, it was broken and he was transferred here. The patient was admitted for observation. He was diagnosed with intra-abdominal hemorrhage and a mesenteric hematoma of the transverse / proximal descending colon and some intra-abdominal blood. The patient was discharged yesterday morning, did well through the day but at night started getting more nauseous and today I was called by his that the patient needs was vomiting and more uncomfortable and she stated that he did not want to come to the hospital but she wanted him to come so the patient came through the emergency room and he is now being readmitted for care. PAST MEDICAL HISTORY: 1. Hypertension. 2. Arthritis. 3. Bilateral carotid stenosis. 4. Depression. 5. Hypercholesterolemia. 6. Stroke. PAST SURGICAL HISTORY: 1. Carotid endarterectomy. 2. Sinus surgery. 3. Cataract removal. MEDICATIONS His medications can be found on the record. 1. Amlodipine. 2. Losartan. PHYSICAL EXAMINATION: GENERAL: The physical examination reveals now a 81-year-old gentleman in no acute distress. HEAD, EYES, EARS, NOSE, THROAT: Normocephalic. No trauma to the head. Pupils equal and reactive. Extraocular muscles intact. Sclerae nonicteric. NECK: Bilateral carotid pulses. Faint bruits. CHEST: Clear. Bilateral breath sounds. HEART: Regular rhythm. ABDOMEN: Distended, soft, hyperresonant, tympanic on percussion. No rebound or guarding but sort of tender in both upper abdomens. No masses are noted. No bruising. PELVIS: Normal. EXTREMITIES: Grossly within normal limits. BACK: Normal. NEUROLOGICAL: Neurologically the patient is fully intact. I have reviewed laboratory and diagnostic procedures. The gentleman has a persistent ileus with some blood in the abdomen. He may have a partial bowel obstruction if there is some injury that caused the scarring of the small bowel but that is unlikely this early although possible. In addition, the patient has a resolving mesenteric hematoma and gas throughout the colon so he should do okay. NG tube is in place and drained about a liter of bilious material. The patient remains on NG suction until his ileus resolves. Brittney SHAY/ALAYNA /1:41 PM /2:46 PM
[2016-11-19] MEDS: ENOXAPARIN SODIUM 40 MG/0.4 ML SYRINGE SQ SCH (16:26)
[2016-11-19] MEDS ORDERED: MORPHINE SULFATE 4 MG/ML INJ IV PRN (20:30)
[2016-11-19] MEDS ORDERED: MELATONIN 5 MG TAB PO PRN (21:00)
[2016-11-20] VITALS: BP 142/64; PULSE 79; RESP 17; TEMP 98.5; O2SAT 94
[2016-11-20 05:37] LABS: HEMATOCRIT 30.4 % (39.0-51.0); MEAN CELL VOLUME 98.4 FL (80.0-100.0); MEAN CORPUSCULAR HGB CONC 34.5 % (32.0-36.0); PLATELET COUNT 154 TH/MM3 (150-450); RED BLOOD COUNT 3.09 MIL/MM3 (4.50-5.90); RED CELL DISTRIBUTION WIDTH 13.2 % (11.6-17.2); REVIEW FLAG FINAL; WHITE BLOOD COUNT 3.7 TH/MM3 (4.0-11.0)
[2016-11-20] MEDS: SODIUM CHLORIDE 0.9% FLUSH 10 ML FLUSH IV FLUSH SCH ×2 (07:54→21:00)
[2016-11-20 08:00] VITALS: BP 141/65; PULSE 78; RESP 18; TEMP 95.6; O2SAT 97
[2016-11-20 12:00] VITALS: BP 135/78; PULSE 107; RESP 18; TEMP 95.6; O2SAT 97
[2016-11-20 12:56] LABS: BICARBONATE 25.4 MEQ/L (21.0-32.0); POTASSIUM 3.8 MEQ/L (3.5-5.1)
[2016-11-20] MEDS: SODIUM CHLOR 0.9% 1000 ML INJ 1,000 ML IV SCH (15:28)
[2016-11-20] MEDS: LOSARTAN 50 MG TAB PO SCH (15:28)
--- NOTE | 2016-11-20 15:30 | PD.CAR.PN ---
CVT Progress Note Subjective/Hospital Course: Patient with a persistent ileus after sustaining bleeding into the mesentery of the large bowel into the abdominal cavitY Hemoglobin remains stable at patient is nauseous and some bilious vomiting NG tube was placed last night is drained over a liter off bilious fluid This is a severe ileus versus partial small bowel obstruction Patient is passing gas so is probably ileus due to irritation from the blood Patient is normally fairly rotund but this is distention to has to be obviously addressed On exam patient has abdomen that soft with hypoactive bowel sounds no rebound no guarding no masses Slightly tender in left upper quadrant consistent with a mesenteric hematoma Repeat CAT scan reveals resolving hematoma of the mesentery and air throughout the small and large bowel with ileus Since this insertion of NG tube patient is not nauseous anymore We'll keep patient nothing by mouth on IV fluids and NG tube suction until he opens up 11/20/16 Abdomen is March softer and decompressed with active bowel sounds and patient feels much better. Had 5 bowel movements and passed gas This morning he remove the NG tube himself and refuses started back inserted. I believe it's probably okay to leave the NG tube out at this point considering that bowel function has returned Will advanced to full liquid see how patient does and all things equal, we'll discharge patient tomorrow I can see patient's point of wanting to go home but I would not like him to leave AMA for he may bounce back again Believe is somewhat overestimating his abilities physically and physiologically forgetting that he is not young man anymore. Objective: Vital Signs Date Time Temp Pulse Resp B/P Pulse Ox O2 Delivery O2 Flow Rate FiO2 11/20/16 12:00 95.6 107 18 135/78 97 11/20/16 08:00 95.6 78 18 141/65 97 11/20/16 00:00 98.5 79 17 142/64 94 11/19/16 20:00 98.5 127 18 140/70 97 Labs: Laboratory Tests Test 11/20/16 11/20/16 04:30 11:31 White Blood Count 3.7 TH/MM3 (4.0-11.0) Red Blood Count 3.09 MIL/MM3 (4.50-5.90) Hemoglobin 10.5 GM/DL (13.0-17.0) Hematocrit 30.4 % (39.0-51.0) Mean Corpuscular Volume 98.4 FL (80.0-100.0) Mean Corpuscular Hemoglobin 34.0 PG (27.0-34.0) Mean Corpuscular Hemoglobin 34.5 % Concent (32.0-36.0) Red Cell Distribution Width 13.2 % (11.6-17.2) Platelet Count 154 TH/MM3 (150-450) Mean Platelet Volume 8.5 FL (7.0-11.0) Sodium Level 139 MEQ/L (136-145) Potassium Level 3.8 MEQ/L (3.5-5.1) Chloride Level 105 MEQ/L (98-107) Carbon Dioxide Level 25.4 MEQ/L (21.0-32.0) Anion Gap 9 MEQ/L (5-15) Blood Urea Nitrogen 34 MG/DL (7-18) Creatinine 1.39 MG/DL (0.60-1.30) Estimat Glomerular Filtration 49 ML/MIN (>89) Rate Random Glucose 98 MG/DL (74-106) Calcium Level 8.3 MG/DL (8.5-10.1) Result Diagram: 11/20/16 0430 11/20/16 1131 Brittney Esteves MD Nov 20, 2016 15:30
[2016-11-20 16:00] VITALS: BP 120/58; PULSE 83; RESP 18; TEMP 95.8; O2SAT 93
[2016-11-20] MEDS: ENOXAPARIN SODIUM 40 MG/0.4 ML SYRINGE SQ SCH (17:15)
[2016-11-20 18:02] VITALS: O2SAT 93
[2016-11-20 20:00] VITALS: BP 154/69; PULSE 107; RESP 18; TEMP 97.7; O2SAT 95
[2016-11-21] MEDS: SODIUM CHLOR 0.9% 1000 ML INJ 1,000 ML IV SCH ×2 (04:02→14:35)
[2016-11-21 08:00] VITALS: BP 176/70; PULSE 77; RESP 18; TEMP 97.7; O2SAT 96
[2016-11-21] MEDS: SODIUM CHLORIDE 0.9% FLUSH 10 ML FLUSH IV FLUSH SCH (08:33)
[2016-11-21] MEDS: LOSARTAN 50 MG TAB PO SCH (08:33)
[2016-11-21 12:00] VITALS: BP 128/73; PULSE 81; RESP 18; TEMP 97.3; O2SAT 94
--- NOTE | 2016-11-21 12:02 | PD.CAR.PN ---
CVT Progress Note Subjective/Hospital Course: Patient with a persistent ileus after sustaining bleeding into the mesentery of the large bowel into the abdominal cavitY Hemoglobin remains stable at patient is nauseous and some bilious vomiting NG tube was placed last night is drained over a liter off bilious fluid This is a severe ileus versus partial small bowel obstruction Patient is passing gas so is probably ileus due to irritation from the blood Patient is normally fairly rotund but this is distention to has to be obviously addressed On exam patient has abdomen that soft with hypoactive bowel sounds no rebound no guarding no masses Slightly tender in left upper quadrant consistent with a mesenteric hematoma Repeat CAT scan reveals resolving hematoma of the mesentery and air throughout the small and large bowel with ileus Since this insertion of NG tube patient is not nauseous anymore We'll keep patient nothing by mouth on IV fluids and NG tube suction until he opens up 11/20/16 Abdomen is March softer and decompressed with active bowel sounds and patient feels much better. Had 5 bowel movements and passed gas This morning he remove the NG tube himself and refuses started back inserted. I believe it's probably okay to leave the NG tube out at this point considering that bowel function has returned Will advanced to full liquid see how patient does and all things equal, we'll discharge patient tomorrow I can see patient's point of wanting to go home but I would not like him to leave AMA for he may bounce back again Believe is somewhat overestimating his abilities physically and physiologically forgetting that he is not young man anymore. 11/21/16 Patient states he's been having bowel movements and wishes to go home, his pain has resolved His abdomen is soft but is distended and tympanic He's been on full liquid diet since admission Will advance diet to regular diet this afternoon. If patient tolerates his diet and continues to have bowel movements, we'll consider discharge today Objective: Vital Signs Date Time Temp Pulse Resp B/P Pulse Ox O2 Delivery O2 Flow Rate FiO2 11/21/16 08:00 97.7 77 18 176/70 96 11/20/16 20:00 97.7 107 18 154/69 95 11/20/16 18:02 93 21 11/20/16 16:00 95.8 83 18 120/58 93 Result Diagram: 11/20/16 0430 11/20/16 1131 Plan: Advance diet today Bowel regimen Consider discharge if patient tolerates diet and continues to have bowel movements Taco Barrera MD Nov 21, 2016 12:02
[2016-11-21] MEDS ORDERED: DOCUSATE SODIUM 100 MG CAP PO SCH (13:00)
[2016-11-21 16:00] VITALS: BP 162/67; PULSE 76; RESP 18; TEMP 97.8; O2SAT 96
--- NOTE | 2016-11-21 16:28 | HHI.DS ---
Discharge Summary Admission Date Nov 19, 2016 at 01:01 Admitting Diagnosis partial SBO, mesenteric contusion Brief History This is a 81-year-old gentleman who apparently fell suffering a mesenteric hematoma. He was discharged and returned with a partial small bowel obstruction. He was managed nonoperatively for a few days, had a large bowel movement last night, and continued to pass flatus. His diet was advanced today which he tolerated well. His pain is resolved, his abdomen is soft, and wishes to go home. CBC/BMP: 11/20/16 0430 11/20/16 1131 Significant Findings Laboratory Tests Test 11/18/16 11/20/16 11/20/16 22:22 04:30 11:31 Red Blood Count 3.44 MIL/MM3 3.09 MIL/MM3 (4.50-5.90) (4.50-5.90) Hemoglobin 11.6 GM/DL 10.5 GM/DL (13.0-17.0) (13.0-17.0) Hematocrit 34.2 % 30.4 % (39.0-51.0) (39.0-51.0) Neutrophils (%) (Auto) 76.4 % (16.0-70.0) Monocytes (%) (Auto) 11.8 % (0.0-8.0) Lymphocytes # (Auto) 0.4 TH/MM3 (1.0-4.8) Blood Urea Nitrogen 31 MG/DL (7-18) 34 MG/DL (7-18) Creatinine 1.87 MG/DL 1.39 MG/DL (0.60-1.30) (0.60-1.30) Estimat Glomerular Filtration 35 ML/MIN (>89) 49 ML/MIN (>89) Rate Random Glucose 144 MG/DL (74-106) Total Bilirubin 1.2 MG/DL (0.2-1.0) Alkaline Phosphatase 41 U/L (45-117) White Blood Count 3.7 TH/MM3 (4.0-11.0) Calcium Level 8.3 MG/DL (8.5-10.1) PE at Discharge Alert and oriented no acute distress Clear to auscultation bilaterally Abdomen is soft, nontender, obese Hospital Course This is a 81-year-old gentleman who apparently fell suffering a mesenteric hematoma. He was discharged and returned with a partial small bowel obstruction. He was managed nonoperatively for a few days, had a large bowel movement last night, and continued to pass flatus. His diet was advanced today which he tolerated well. His pain is resolved, his abdomen is soft, and wishes to go home. Pt Condition on Discharge: Good Discharge Disposition: Discharge Home Discharge Instructions DIET: Follow Instructions for: As Tolerated, No Restrictions Activities you can perform: Regular-No Restrictions Taco Barrera MD Nov 21, 2016 16:27
[2016-11-21] MEDS ORDERED: MAGNESIUM HYDROXIDE SUSP 30 ML CUP PO SCH (21:00)
== END 2016-11-21 17:50 | disposition home or self-care (01) | DRG 390 ==
LOC: NEPE 21:00 → NEDH 11-19 01:01 → N07A 11-19 04:54
PROVIDERS: ADMIT Surgery; ATTEND Surgery
PROC: 0D9670Z Drainage of Stomach with Drainage Device, Via Natural or Artificial Opening (ICD-10-PCS; principal; 2016-11-18)
DX: K56.7 Ileus, unspecified (principal); I10 Essential (primary) hypertension; S36.892D Contusion of other intra-abdominal organs, subsequent encounter; F32.9 Major depressive disorder, single episode, unspecified; M19.90 Unspecified osteoarthritis, unspecified site; E78.00 Pure hypercholesterolemia, unspecified; Z86.73 Personal history of transient ischemic attack (TIA), and cerebral infarction without residual deficits; H91.90 Unspecified hearing loss, unspecified ear; F40.240 Claustrophobia; Z87.891 Personal history of nicotine dependence; W18.30XD Fall on same level, unspecified, subsequent encounter; Z79.02 Long term (current) use of antithrombotics/antiplatelets
CPT/HCPCS: 74177; 80048; 80053; 83690; 85025; 85027; 85610; 85730; 96361; 96374; 96375; J1170; J1650; J2060; J2405; J2765; J7030; Q9967

== ENCOUNTER 2016-11-21 21:20 | Inpatient (IN) | payer MEDICARE, BC ==
[~2016-11-21] VITALS: Ht 177.8 cm; Wt 100.9 kg
[~2016-11-21 21:20] MED LIST changes: +PLAV75TA29 PO
[2016-11-22] VITALS: BP 148/65; PULSE 94; RESP 20; TEMP 97.4; O2SAT 97
[2016-11-22] MEDS ORDERED: SODIUM CHLORIDE 0.9% FLUSH 10 ML FLUSH IV FLUSH PRN (01:00)
[2016-11-22] MEDS: METOCLOPRAMIDE HCL 10 MG/2 ML VIAL IV PRN ×2 (02:49→08:20)
[2016-11-22 08:00] VITALS: BP 124/58; PULSE 77; RESP 16; TEMP 98; O2SAT 95
[2016-11-22] MEDS: LACTATED RINGER'S 1000 ML INJ 1,000 ML IV SCH ×2 (08:20→20:25)
[2016-11-22] MEDS: SODIUM CHLORIDE 0.9% FLUSH 10 ML FLUSH IV FLUSH SCH ×2 (08:20→20:26)
[2016-11-22 12:00] VITALS: BP 146/57; PULSE 76; RESP 17; TEMP 98; O2SAT 95
[2016-11-22 16:00] VITALS: BP 155/87; PULSE 77; RESP 19; TEMP 97; O2SAT 96
--- NOTE | 2016-11-22 16:03 | HHI.HP ---
History of Present Illness Primary Care Physician Tita Proctor, DO Admission Diagnosis Diagnoses: History of Present Illness Patient was in hospital for ileus due to retroperitoneal/mesenteric hematoma. He was tolerating his diet and having bowel movements, passing flatus, so he was discharged home. He was adamant about being discharged, and clinically had no reason to remain. Once home, however, he vomited twice. He was sent to the floor for a direct admission. Review of Systems Constitutional: DENIES: Diaphoretic episodes, Fatigue, Fever, Weight gain, Weight loss, Chills, Dizziness, Change in appetite, Night Sweats Endocrine: DENIES: Heat/cold intolerance, Polydipsia, Polyuria, Polyphagia Eyes: DENIES: Blurred vision, Diplopia, Eye inflammation, Eye pain, Vision loss , Photosensitivity, Double Vision Ears, nose, mouth, throat: DENIES: Tinnitus, Hearing loss, Vertigo, Nasal discharge, Oral lesions, Throat pain, Hoarseness, Ear Pain, Running Nose, Epistaxis, Sinus Pain, Toothache, Odynophagia Respiratory: DENIES: Apneas, Cough, Snoring, Wheezing, Hemoptysis, Sputum production, Shortness of breath Cardiovascular: DENIES: Chest pain, Palpitations, Syncope, Dyspnea on Exertion , PND, Lower Extremity Edema, Orthopnea, Claudication Gastrointestinal: COMPLAINS OF: Diarrhea, Nausea, Vomiting, DENIES: Abdominal pain, Black stools, Bloody stools, Constipation, Difficulty Swallowing, Anorexia Genitourinary: DENIES: Sexual dysfunction, Urinary frequency, Urinary incontinence, Urgency, Hematuria, Dysuria, Nocturia, Penile Discharge, Testicular Pain, Testicular Swelling Musculoskeletal: DENIES: Joint pain, Muscle aches, Stiffness, Joint Swelling, Back pain, Neck pain Integumentary: DENIES: Abnormal pigmentation, Nail changes, Pruritus, Rash Hematologic/lymphatic: DENIES: Bruising, Lymphadenopathy Immunologic/allergic: DENIES: Eczema, Urticaria Neurologic: DENIES: Abnormal gait, Headache, Localized weakness, Paresthesias, Seizures, Speech Problems, Tremor, Poor Balance Psychiatric: DENIES: Anxiety, Confusion, Mood changes, Depression, Hallucinations, Agitation, Suicidal Ideation, Homicidal Ideation, Delusions Past Family Social History Allergies: Coded Allergies: No Known Allergies (Verified , 11/18/16) Past Medical History Hypertension Past Surgical History Patient says he's had numerous surgeries over the years, mostly involving his sinuses He does have a recent carotid endarterectomy with Dr. Crowell Reported Medications Amlodipine Plavix and Cozaar Social History Patient's a former smoker Physical Exam Vital Signs Vital Signs Date Time Temp Pulse Resp B/P Pulse Ox O2 Delivery O2 Flow Rate FiO2 11/22/16 12:00 98.0 76 17 146/57 95 11/22/16 08:00 98.0 77 16 124/58 95 11/22/16 00:00 97.4 94 20 148/65 97 Physical Exam GENERAL: This is a well-nourished, well-developed patient, in no apparent distress. SKIN: No rashes, ecchymoses or lesions. Cool and dry. HEAD: Atraumatic. Normocephalic. No temporal or scalp tenderness. EYES: Pupils equal round and reactive. Extraocular motions intact. No scleral icterus. No injection or drainage. ENT: Nose without bleeding, purulent drainage or septal hematoma. Throat without erythema, tonsillar hypertrophy or exudate. Uvula midline. Airway patent. NECK: Trachea midline. No JVD or lymphadenopathy. Supple, nontender, no meningeal signs. CARDIOVASCULAR: Regular rate and rhythm without murmurs, gallops, or rubs. RESPIRATORY: Clear to auscultation. Breath sounds equal bilaterally. No wheezes , rales, or rhonchi. GASTROINTESTINAL: Abdomen soft, non-tender, mildly distended and tympanic. No hepato-splenomegaly, or palpable masses. No guarding. MUSCULOSKELETAL: Extremities without clubbing, cyanosis, or edema. No joint tenderness, effusion, or edema noted. No calf tenderness. Negative Homans sign bilaterally. NEUROLOGICAL: Awake and alert. Cranial nerves II through XII intact. Motor and sensory grossly within normal limits. Five out of 5 muscle strength in all muscle groups. Normal speech. Assessment and Plan Assessment and Plan Admit NPO, ice chips for comfort and sips with PO medication KUB Consider SBFT to rule out obstruction Place NGT if emesis persists despite being NPO Taco Barrera MD Nov 22, 2016 16:03
--- NOTE | 2016-11-22 18:32 | RADRPT ---
EXAM DATE/TIME: 11/22/2016 17:59 [facility] COMPARISON: CT ABDOMEN & PELVIS W CONTRAST, November 19, 2016, 0:15. INDICATIONS : Rule out ileus. MEDICAL HISTORY : Hypertension. SURGICAL HISTORY : ENCOUNTER: Subsequent ACUITY: 3 days PAIN SCORE: 0/10 LOCATION: Bilateral Abdomen. FINDINGS: 2 supine frontal views of the abdomen show dilated loops of gas-filled small bowel within the midabdo men. The degree of distention is less than on the prior CT. A small amount of gas is seen within a no rmal caliber colon. No organomegaly appreciated. No calcifications. Bony structures are unremarkable. Lung bases are clear. CONCLUSION: Dilated loops of gas-filled small bowel within the mid abdomen are less pronounced from the prior salma dy. The pattern is more typical of a small bowel obstruction. Scott King Jr., MD on November 22, 2016 at 18:28 Board Certified Radiologist. This report was verified electronically.
[2016-11-22] MEDS: ERYTHROMYCIN EC 250 MG TABEC PO SCH (22:06)
[2016-11-23] VITALS: BP 179/75; PULSE 80; RESP 22; TEMP 98.1; O2SAT 97
[2016-11-23] MEDS: LOSARTAN 50 MG TAB PO SCH ×2 (00:11→08:32)
[2016-11-23] MEDS: CLOPIDOGREL 75 MG TAB PO SCH ×2 (00:12→08:32)
[2016-11-23 04:00] VITALS: BP 179/76; PULSE 86; RESP 22; TEMP 97.6; O2SAT 98
[2016-11-23] MEDS: ERYTHROMYCIN EC 250 MG TABEC PO SCH ×3 (05:15→21:04)
[2016-11-23 05:26] LABS: BASOPHIL % 0.8 % (0.0-2.0); EOSINOPHIL # 0.1 TH/MM3 (0-0.4); EOSINOPHIL % 2.7 % (0.0-4.0); HEMATOCRIT 31.5 % (39.0-51.0); HEMO FLAGS DIFF FINAL; LYMPH % 14.6 % (9.0-44.0); LYMPHOCYTE # 0.6 TH/MM3 (1.0-4.8); MEAN CELL VOLUME 98.1 FL (80.0-100.0); MEAN CORPUSCULAR HEMOGLOBIN 34.2 PG (27.0-34.0); MEAN CORPUSCULAR HGB CONC 34.8 % (32.0-36.0); MONO % 14.7 % (0.0-8.0); NEUT % 67.2 % (16.0-70.0); PLATELET COUNT 199 TH/MM3 (150-450); RED BLOOD COUNT 3.22 MIL/MM3 (4.50-5.90); RED CELL DISTRIBUTION WIDTH 12.9 % (11.6-17.2); WHITE BLOOD COUNT 4.4 TH/MM3 (4.0-11.0)
[2016-11-23 05:42] LABS: POTASSIUM 3.4 MEQ/L (3.5-5.1)
[2016-11-23 08:00] VITALS: BP 133/62; PULSE 77; RESP 17; TEMP 97.7; O2SAT 91
[2016-11-23] MEDS: ENOXAPARIN SODIUM 40 MG/0.4 ML SYRINGE SQ SCH (08:32)
[2016-11-23] MEDS: SODIUM CHLORIDE 0.9% FLUSH 10 ML FLUSH IV FLUSH SCH ×2 (08:32→21:04)
[2016-11-23] MEDS: LACTATED RINGER'S 1000 ML INJ 1,000 ML IV SCH ×2 (08:32→21:00)
[2016-11-23] MEDS ORDERED: DIATRIZOATE MEGLUM/DIATRIZOATE SOD 120 ML BTL (for RAD DIAG) PO ONE (12:00)
[2016-11-23 12:45] VITALS: BP 131/60; PULSE 81; RESP 17; TEMP 97.7; O2SAT 97
--- NOTE | 2016-11-23 13:16 | RADRPT ---
EXAM DATE/TIME: 11/23/2016 11:15 [facility] COMPARISON: ABDOMEN KUB ONLY, November 22, 2016, 17:59. INDICATIONS : Obstruction, vomiting. FLUORO TIME: 0 minutes IMAGE COUNT: 15 CONTRAST: [facility] IMAGING TIME(S): 15 min, 30 min, 45 min, 1 hr MEDICAL HISTORY : None. SURGICAL HISTORY : None. ENCOUNTER: Initial ACUITY: 1 week PAIN SCORE: 0/10 LOCATION: Bilateral abdomen FINDINGS: The patient was allowed to consume barium. Mucosal contours of the stomach were unremarkable. There is brisk emptying from the stomach into the small bowel. There is diffuse dilation of the jejun um. The ileum returns to more normal caliber. There is brisk transit of barium through the entirety o f the small bowel into the colon. Barium was identified at the level the rectum within 45 minutes. Oblique imaging was performed. The terminal ileum was unremarkable in appearance. CONCLUSION: 1. Diffuse, nonspecific dilation of the entire jejunum down to the proximal ileum. The distal ileum i s normal in caliber. No definite transition point is evident. There is brisk transit of barium throug h the small bowel and down into the colon. Barium was seen within the colon at 45 minutes. Jeffrey Vernon MD on November 23, 2016 at 12:45 Board Certified Radiologist. This report was verified electronically.
[2016-11-23 16:00] VITALS: BP 131/63; PULSE 80; RESP 17; TEMP 96.6; O2SAT 96
[2016-11-23 20:00] VITALS: BP 146/63; PULSE 65; RESP 18; TEMP 96.5; O2SAT 98
[2016-11-24] VITALS: BP 148/69; PULSE 80; RESP 18; TEMP 96.8; O2SAT 98
[2016-11-24] MEDS: ERYTHROMYCIN EC 250 MG TABEC PO SCH ×3 (06:06→20:54)
[2016-11-24 08:00] VITALS: BP 148/67; PULSE 75; RESP 20; TEMP 96; O2SAT 97
[2016-11-24] MEDS: CLOPIDOGREL 75 MG TAB PO SCH (08:24)
[2016-11-24] MEDS: SODIUM CHLORIDE 0.9% FLUSH 10 ML FLUSH IV FLUSH SCH ×2 (08:24→20:54)
[2016-11-24] MEDS: ENOXAPARIN SODIUM 40 MG/0.4 ML SYRINGE SQ SCH (08:24)
[2016-11-24] MEDS: LOSARTAN 50 MG TAB PO SCH (08:24)
[2016-11-24 12:00] VITALS: BP 147/65; PULSE 72; RESP 22; TEMP 97.2; O2SAT 94
[2016-11-24 16:00] VITALS: BP 172/76; PULSE 76; RESP 18; TEMP 98; O2SAT 97
--- NOTE | 2016-11-24 17:13 | PD.CAR.PN ---
CVT Progress Note Subjective/Hospital Course: 11/24/16 Patient recurrence of small bowel obstruction versus severe ileus after mesenteric bleed and a fall. As noted patient was discharged in stable condition and then returned back with nausea and vomiting. Patient tends to overestimate his ability and doesn't realized that gradually increasing diet and activity level may affect his GI function. While he was distended the other day, when seen by my partner, today abdomen is soft with active bowel sounds and patient is having regular bowel movements Gastrografin past very rapidly to small bowel into the large bowel and he evacuated about 5 diarrhea-like bowel movements yesterday Today he had one large bowel movement is soft semi-formed.Should be noted that patient has been very insistent to go home for the last 3 days, and an ostomy bowel movements he had and I was gaseous passing is slightly vague about it because I know he is trying to tell me what he thinks I want to hear rather than what I should hea On exam abdomen is soft with active bowel sounds no rebound no guarding no masses and no distention other than patient's regular body habitus appearance Advanced to heart healthy diet Will recheck amylase and CBC All things equal we'll discharge the patient tomorrow Either way patient does well we'll discharge him tomorrow Objective: Vital Signs Date Time Temp Pulse Resp B/P Pulse Ox O2 Delivery O2 Flow Rate FiO2 11/24/16 08:00 96.0 75 20 148/67 97 11/24/16 00:00 96.8 80 18 148/69 98 11/23/16 20:00 96.5 65 18 146/63 98 Result Diagram: 11/23/16 0435 11/23/16 0435 Brittney Esteves MD Nov 24, 2016 17:13
[2016-11-24 20:00] VITALS: BP 126/77; PULSE 99; RESP 20; TEMP 97.5; O2SAT 93
[2016-11-25] VITALS: BP 168/77; PULSE 83; RESP 20; TEMP 96.9; O2SAT 98
[2016-11-25] MEDS: ERYTHROMYCIN EC 250 MG TABEC PO SCH ×2 (05:33→15:27)
[2016-11-25 06:54] LABS: HEMATOCRIT 34.3 % (39.0-51.0); MEAN CELL VOLUME 96.9 FL (80.0-100.0); MEAN CORPUSCULAR HEMOGLOBIN 33.5 PG (27.0-34.0); MEAN CORPUSCULAR HGB CONC 34.6 % (32.0-36.0); PLATELET COUNT 245 TH/MM3 (150-450); RED BLOOD COUNT 3.54 MIL/MM3 (4.50-5.90); RED CELL DISTRIBUTION WIDTH 13.2 % (11.6-17.2); REVIEW FLAG FINAL; WHITE BLOOD COUNT 4.6 TH/MM3 (4.0-11.0)
[2016-11-25] MEDS: CLOPIDOGREL 75 MG TAB PO SCH (07:56)
[2016-11-25] MEDS: LOSARTAN 50 MG TAB PO SCH (07:56)
[2016-11-25] MEDS: ENOXAPARIN SODIUM 40 MG/0.4 ML SYRINGE SQ SCH (07:58)
[2016-11-25] MEDS: SODIUM CHLORIDE 0.9% FLUSH 10 ML FLUSH IV FLUSH SCH (07:59)
[2016-11-25 08:00] VITALS: BP 154/66; PULSE 70; RESP 16; TEMP 98.2; O2SAT 96
--- NOTE | 2016-11-25 09:49 | PD.CAR.PN ---
CVT Progress Note Subjective/Hospital Course: 11/24/16 Patient recurrence of small bowel obstruction versus severe ileus after mesenteric bleed and a fall. As noted patient was discharged in stable condition and then returned back with nausea and vomiting. Patient tends to overestimate his ability and doesn't realized that gradually increasing diet and activity level may affect his GI function. While he was distended the other day, when seen by my partner, today abdomen is soft with active bowel sounds and patient is having regular bowel movements Gastrografin past very rapidly to small bowel into the large bowel and he evacuated about 5 diarrhea-like bowel movements yesterday Today he had one large bowel movement is soft semi-formed.Should be noted that patient has been very insistent to go home for the last 3 days, and an ostomy bowel movements he had and I was gaseous passing is slightly vague about it because I know he is trying to tell me what he thinks I want to hear rather than what I should hea On exam abdomen is soft with active bowel sounds no rebound no guarding no masses and no distention other than patient's regular body habitus appearance Advanced to heart healthy diet Will recheck amylase and CBC All things equal we'll discharge the patient tomorrow Either way patient does well we'll discharge him tomorrow 11/25/16 Abdomen soft with active bowel sounds nontender and patient states it 2 more bowel movements although only one has been documented States he passes lots of gas Amylase is slightly elevated I'm not quite sure of the cause, but as noted above patient is not tender states he feels very well As I have stated before in my notes patient tends to overestimate himself somewhat as far as the wellness is concerned in order to be discharged but at this point I believe that he is indeed improved to the point that he can go home Will discharge patient today Objective: Vital Signs Date Time Temp Pulse Resp B/P Pulse Ox O2 Delivery O2 Flow Rate FiO2 11/25/16 08:00 98.2 70 16 154/66 96 11/25/16 00:00 96.9 83 20 168/77 98 11/24/16 20:00 97.5 99 20 126/77 93 11/24/16 16:00 98.0 76 18 172/76 97 11/24/16 12:00 97.2 72 22 147/65 94 Labs: Laboratory Tests Test 11/25/16 06:04 White Blood Count 4.6 TH/MM3 (4.0-11.0) Red Blood Count 3.54 MIL/MM3 (4.50-5.90) Hemoglobin 11.9 GM/DL (13.0-17.0) Hematocrit 34.3 % (39.0-51.0) Mean Corpuscular Volume 96.9 FL (80.0-100.0) Mean Corpuscular Hemoglobin 33.5 PG (27.0-34.0) Mean Corpuscular Hemoglobin 34.6 % Concent (32.0-36.0) Red Cell Distribution Width 13.2 % (11.6-17.2) Platelet Count 245 TH/MM3 (150-450) Mean Platelet Volume 8.0 FL (7.0-11.0) Lipase 416 U/L (73-393) Result Diagram: 11/25/16 0604 11/23/16 0435 Brittney Esteves MD Nov 25, 2016 09:49
[2016-11-25 12:00] VITALS: BP 131/41; PULSE 76; RESP 22; TEMP 97.9; O2SAT 97
[2016-11-25 16:00] VITALS: BP 129/62; PULSE 75; RESP 20; TEMP 97.5; O2SAT 98
--- NOTE | 2016-12-06 15:48 | MD ---
cc: BRITTNEY GUTIERREZ MD ADMISSION DATE: 11/21/2016 DISCHARGE DATE: 11/25/2016 HISTORY OF PRESENT DISEASE This pleasant 81-year-old gentleman developed a mesenteric retroperitoneal hematoma after he fell from a standing position. The patient was initially admitted to the hospital and after having bowel movements and ____ flatus he was discharge home. The patient was adamant at the time of being discharged, he had no reason to remain. However, once home the patient ate a sandwich then vomited twice. He then came back to emergency room and was admitted for nausea, vomiting, abdominal distension. At the time of admission on physical exam the patient was found to have abdominal distension. Abdomen is soft with hypoactive bowel sounds, moderately distended and he was passing gas and is not tender, however, feels nauseous. The patient was placed on IV fluids and n.p.o. and a nasogastric tube was placed. The next 48 hours the patient drained about 2-1/2 liters of succus entericus and then the drainage suddenly decreased from NG tube. The patient passed gas, had several bowel movements. NG tube was removed. The patient was started on clear liquids advanced to diet and discharged with instructions to follow up in my office. At this point the patient had nausea, no vomiting and was tolerating diet well. GI function has resolved. No consults were obtained. Brittney SHAY/KK /1:26 PM /3:44 PM
== END 2016-11-25 18:30 | disposition home or self-care (01) | DRG 390 ==
LOC: N07B 22:42
PROVIDERS: ADMIT Surgery; ATTEND Surgery
DX: K56.7 Ileus, unspecified (principal); I10 Essential (primary) hypertension; Z87.891 Personal history of nicotine dependence; Z79.02 Long term (current) use of antithrombotics/antiplatelets
CPT/HCPCS: 74000; 74250; 76937; 80048; 82150; 83690; 85025; 85027; J1650; J2765; J7120; Q9963

== ENCOUNTER 2017-03-12 16:38 | Emergency (ER) | payer MEDICARE, BC ==
[~2017-03-12] VITALS: Ht 177.8 cm; Wt 99.0 kg
[~2017-03-12 16:38] MED LIST changes: -OXYC1TAB63 PO; -PLAV75TA29 PO
[2017-03-12 16:47] VITALS: BP 163/74; PULSE 79; RESP 16; TEMP 97.6; O2SAT 97
[2017-03-12] MEDS ORDERED: CLOP75TA PO (16:58)
--- NOTE | 2017-03-12 17:45 | RADRPT ---
EXAM DATE/TIME: 03/12/2017 17:28 [facility] COMPARISON: SMALL BOWEL SERIES W/GASTROGRAFIN, November 23, 2016, 11:15. INDICATIONS : Left foot pain. MEDICAL HISTORY : None. SURGICAL HISTORY : None. ENCOUNTER: Initial ACUITY: 3 days PAIN SCORE: 6/10 LOCATION: Left foot FINDINGS: There is diffuse soft tissue swelling along the dorsal aspect of the foot. No foreign body is seen. The osseous structures are intact. CONCLUSION: 1. Soft tissue swelling. 2. No acute fracture. Jeffrey Vernon MD on March 12, 2017 at 17:42 Board Certified Radiologist. This report was verified electronically.
[2017-03-12] MEDS ORDERED: CLIN1CAP6 PO (18:01)
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
== END 2017-03-12 18:27 | disposition home or self-care (01) ==
LOC: PHEFT 16:38
DX: S90.32XA Contusion of left foot, initial encounter (principal); L03.116 Cellulitis of left lower limb; E78.00 Pure hypercholesterolemia, unspecified; I10 Essential (primary) hypertension; Z79.01 Long term (current) use of anticoagulants; Z86.73 Personal history of transient ischemic attack (TIA), and cerebral infarction without residual deficits; W20.8XXA Other cause of strike by thrown, projected or falling object, initial encounter; Y93.H9 Activity, other involving exterior property and land maintenance, building and construction; Y92.007 Garden or yard of unspecified non-institutional (private) residence as the place of occurrence of the external cause; Y99.8 Other external cause status
CPT/HCPCS: 73630; 99283

== ENCOUNTER 2017-03-18 13:44 | Emergency (ER) | payer MEDICARE, BC ==
[~2017-03-18] VITALS: Ht 177.8 cm; Wt 98.9 kg
[~2017-03-18 13:44] MED LIST changes: +CLIN1CAP6 PO; +CLOP75TA PO
[2017-03-18 13:45] VITALS: BP 163/67; PULSE 70; RESP 20; TEMP 97.6; O2SAT 98
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
[2017-03-18] MEDS ORDERED: BACT800T5 PO (14:51)
[2017-03-18] MEDS ORDERED: CEPH-460 PO (14:51)
[2017-03-18] MEDS ORDERED: SULFAMETHOXAZOLE-TRIMETHOPRIM DS 800-160 MG TAB PO ONE (15:00)
[2017-03-18] MEDS ORDERED: CEPHALEXIN MONOHYDRATE 500 MG CAP PO ONE (15:00)
== END 2017-03-18 15:37 | disposition home or self-care (01) ==
LOC: PHED 13:44
DX: L03.116 Cellulitis of left lower limb (principal); Z79.01 Long term (current) use of anticoagulants; M19.90 Unspecified osteoarthritis, unspecified site; E78.00 Pure hypercholesterolemia, unspecified; I25.2 Old myocardial infarction; H91.90 Unspecified hearing loss, unspecified ear; I10 Essential (primary) hypertension
CPT/HCPCS: 99284

== ENCOUNTER 2017-03-22 14:22 | Inpatient (IN) | payer MEDICARE, BC ==
[~2017-03-22] VITALS: Ht 177.8 cm; Wt 98.9 kg
[~2017-03-22 14:22] MED LIST changes: +BACT800T5 PO; +CEPH-460 PO
[2017-03-22 15:45] LABS: AUTOMATED NEUTROPHIL # 2.2 TH/MM3 (1.8-7.7); BASOPHIL % 0.6 % (0.0-2.0); EOSINOPHIL # 0.1 TH/MM3 (0-0.4); EOSINOPHIL % 1.6 % (0.0-4.0); HEMATOCRIT 46.1 % (39.0-51.0); HEMO FLAGS DIFF FINAL; LYMPH % 21.1 % (9.0-44.0); LYMPHOCYTE # 0.7 TH/MM3 (1.0-4.8); MEAN CELL VOLUME 99.8 FL (80.0-100.0); MEAN CORPUSCULAR HEMOGLOBIN 34.2 PG (27.0-34.0); MEAN CORPUSCULAR HGB CONC 34.3 % (32.0-36.0); MONO % 12.9 % (0.0-8.0); NEUT % 63.8 % (16.0-70.0); PLATELET COUNT 185 TH/MM3 (150-450); RED BLOOD COUNT 4.62 MIL/MM3 (4.50-5.90); RED CELL DISTRIBUTION WIDTH 13.1 % (11.6-17.2); WHITE BLOOD COUNT 3.5 TH/MM3 (4.0-11.0)
[2017-03-22 15:57] LABS: CHLORIDE 102 MEQ/L (98-107); SODIUM (NA) 133 MEQ/L (136-145)
[2017-03-22 16:01] LABS: ANION GAP 10 MEQ/L (5-15); BICARBONATE 21.5 MEQ/L (21.0-32.0); BLOOD UREA NITROGEN 18 MG/DL (7-18)
[2017-03-22 16:04] LABS: ALT (GPT) 27 U/L (12-78); AST (GOT) 31 U/L (15-37); GLOMERULAR FILTRATION RATE 45 ML/MIN (>89)
[2017-03-22 16:06] LABS: TOTAL BILIRUBIN ADULT 0.8 MG/DL (0.2-1.0)
[2017-03-22 16:07] LABS: ALKALINE PHOSPHATASE 67 U/L (45-117)
--- NOTE | 2017-03-22 16:16 | RADRPT ---
EXAM DATE/TIME: 03/22/2017 15:49 [facility] COMPARISON: No previous studies available for comparison. INDICATIONS : Left leg swelling. MEDICAL HISTORY : Hypercholesterolemia. Hypertension. Arthritis. Sinusitis. Cerebrovascular accident. SURGICAL HISTORY : Tonsillectomy. Left hand contractures. Carotid endarterectomy. ENCOUNTER: Initial ACUITY: 3 weeks PAIN SCORE: 6/10 LOCATION: Left leg. TECHNIQUE: Venous ultrasound of the leg was performed from the inguinal ligament to the proximal calf. Real-jay e, color Doppler and spectral tracing, compression and augmentation techniques were used. FINDINGS: There is normal compressibility of the deep venous system from the inguinal region to the proximal ca lf. No echogenic clot is seen in the lumen of the common femoral, femoral, popliteal, and posterior tibial veins. There is a normal response of the venous system to proximal and distal augmentation an d respiration. CONCLUSION: No DVT left leg. Keon Sepulveda MD on March 22, 2017 at 16:14 Board Certified Radiologist. This report was verified electronically.
[2017-03-22 16:24] LABS: CREATINE KINASE 63 U/L (39-308)
[2017-03-22 16:25] VITALS: BP 176/72; PULSE 90; RESP 18; TEMP 97.7; O2SAT 100
[2017-03-22 17:07] VITALS: BP 155/75; PULSE 108; RESP 22; TEMP 98; O2SAT 97
[2017-03-22 17:25] VITALS: BP 168/76; PULSE 86; RESP 20; TEMP 98; O2SAT 100
[2017-03-22] MEDS ORDERED: SODIUM CHLORIDE FLUSH PRN IV FLUSH (17:30)
[2017-03-22] MEDS ORDERED: ACETAMINOPHEN 500 MG CPLT PO PRN (17:30)
[2017-03-22] MEDS ORDERED: VANCOMYCIN 1,000 MG/NS 250 ML IV ONE ×2 (18:00)
[2017-03-22] MEDS ORDERED: IOHEXOL 350 MG/ML 10 ML VIAL (for RAD DIAG) IVCONTRAST ONE (18:03)
--- NOTE | 2017-03-22 18:16 | RADRPT ---
EXAM DATE/TIME: 03/22/2017 17:34 [facility] COMPARISON: No previous studies available for comparison. INDICATIONS : Left foot and ankle pain and swelling. Evaluate for abscess. IV CONTRAST: 75 cc Omnipaque 350 (iohexol) IV ; Cumulative dose for multiple exams. RADIATION DOSE: 6.12 CTDIvol (mGy) ; Combined studies MEDICAL HISTORY : Cerebrovascular disease. SURGICAL HISTORY : Carotid endarterectomy. ENCOUNTER: Initial ACUITY: 2 weeks PAIN SCALE: 8/10 LOCATION: Left ankle TECHNIQUE: Volumetric scanning of the ankle was performed. Using automated exposure control and adjustment of t he mA and/or kV according to patient size, radiation dose was kept as low as reasonably achievable to obtain optimal diagnostic quality images. DICOM format image data is available electronically for review and comparison. FINDINGS: BONES: No evidence of fracture. Alignment is within normal limits. There is mild chronic cystic change in t he distal medial aspect of the tibia. This appears chronic. No acute areas of bone destruction or per iosteal reaction are seen. JOINTS: Ankle mortise is intact. No evidence of joint narrowing or effusion. SOFT TISSUES: Muscles, tendons and neurovascular structures are grossly unremarkable. No evidence of mass, organize d fluid collection, or foreign body. There is edema within the subcutaneous soft tissues. CONCLUSION: No acute bony abnormality is seen. There is diffuse superficial soft tissue swelling. No focal fluid collection is seen. Naresh Haley MD on March 22, 2017 at 18:12 Board Certified Radiologist. This report was verified electronically.
--- NOTE | 2017-03-22 18:21 | RADRPT ---
EXAM DATE/TIME: 03/22/2017 17:34 [facility] COMPARISON: No previous studies available for comparison. INDICATIONS : Left foot and ankle pain and swelling. Evaluate for abscess. IV CONTRAST: 75 cc Omnipaque 350 (iohexol) IV ; Cumulative dose for multiple exams. RADIATION DOSE: 6.12 CTDIvol (mGy) ; Combined studies MEDICAL HISTORY : Cerebrovascular disease. SURGICAL HISTORY : Carotid endarterectomy. ENCOUNTER: Initial ACUITY: 1 week PAIN SCALE: 8/10 LOCATION: Left foot TECHNIQUE: Volumetric scanning of the foot was performed. Using automated exposure control and adjustment of th e mA and/or kV according to patient size, radiation dose was kept as low as reasonably achievable to obtain optimal diagnostic quality images. DICOM format image data is available electronically for re view and comparison. FINDINGS: BONES: No evidence of fracture. Alignment is within normal limits. No areas of bone destruction are seen. N o periosteal reaction is seen. JOINTS: No evidence of joint narrowing or effusion. SOFT TISSUES: There is an oval area of increased density seen at the dorsal aspect of foot at the level of the meta tarsals measuring 3.4 x 1.5 x 3.4 cm. This measures 55 Hounsfield units and is too dense to represent a simple fluid collection. Surrounding inflammatory change is not seen. There is superficial edema s een. Muscles, tendons, and neurovascular structures are grossly unremarkable. No foreign body is seen . CONCLUSION: 3.4 x 1.5 x 3.4 cm oval soft tissue density at the dorsal aspect of foot superficial to the metatarsa ls. This is too dense to represent a simple fluid collection. It most closely resembles a hematoma. I n the correct clinical situation, a inflammatory mass without a central fluid collection/abscess coul d have this appearance. There is diffuse edema seen in the subcutaneous superficial fat. Naresh Haley MD on March 22, 2017 at 18:14 Board Certified Radiologist. This report was verified electronically.
[2017-03-22 18:25] VITALS: BP 156/96; PULSE 92; RESP 16; TEMP 97.7; O2SAT 100
[2017-03-22 19:00] VITALS: BP 136/64; PULSE 75; RESP 18; TEMP 97.3; O2SAT 96
[2017-03-22 20:00] VITALS: BP 140/71; PULSE 74; RESP 20; TEMP 97.7; O2SAT 95
[2017-03-22] MEDS: SODIUM CHLOR 0.9% 1000 ML INJ 1,000 ML IV SCH (20:31)
[2017-03-22] MEDS: ACETAMINOPHEN/HYDROcodone 325 MG/7.5 MG TAB PO PRN (20:32)
[2017-03-22] MEDS: SODIUM CHLORIDE FLUSH BID IV FLUSH SCH (20:32)
[2017-03-23] VITALS: BP 125/65; PULSE 77; RESP 18; TEMP 98; O2SAT 95
[2017-03-23] MEDS: ACETAMINOPHEN/HYDROcodone 325 MG/7.5 MG TAB PO PRN ×2 (01:49→08:04)
[2017-03-23] MEDS: SODIUM CHLOR 0.9% 1000 ML INJ 1,000 ML IV SCH (04:15)
[2017-03-23] MEDS: SODIUM CHLORIDE FLUSH BID IV FLUSH SCH (08:04)
[2017-03-23 08:07] VITALS: BP 136/64; PULSE 68; RESP 20; TEMP 98.3; O2SAT 95
[2017-03-23] MEDS ORDERED: traMADol HCL 50 MG TAB PO PRN (08:30)
[2017-03-23] MEDS ORDERED: ULTR50TA5 PO (08:46)
[2017-03-23] MEDS ORDERED: ACET500T13 PO (08:46)
[2017-03-23] MEDS ORDERED: FURO20TA PO (08:46)
[2017-03-23] MEDS ORDERED: CIPR-9 PO (08:46)
[2017-03-23] MEDS ORDERED: LOSARTAN 50 MG TAB PO SCH (09:00)
[2017-03-23] MEDS ORDERED: CIPROFLOXACIN 500 MG TAB PO SCH (09:00)
[2017-03-23] MEDS ORDERED: FUROSEMIDE 20 MG TAB PO SCH (09:00)
[2017-03-23] MEDS ORDERED: GABA300C5 PO (09:01)
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
== END 2017-03-23 11:41 | disposition home or self-care (01) | DRG 605 ==
LOC: OBSVTOIN 14:22 → PH5A 14:22 → INTOOBSV 14:22
PROVIDERS: ADMIT Family Medicine; ATTEND Family Medicine
DX: S90.32XA Contusion of left foot, initial encounter (principal); L03.116 Cellulitis of left lower limb; I69.398 Other sequelae of cerebral infarction; I10 Essential (primary) hypertension; F41.9 Anxiety disorder, unspecified; R09.82 Postnasal drip; M25.472 Effusion, left ankle; H54.7 Unspecified visual loss; R11.2 Nausea with vomiting, unspecified; W20.8XXA Other cause of strike by thrown, projected or falling object, initial encounter
CPT/HCPCS: 73701; 80053; 82550; 83605; 85025; 87040; 93971; J3370; J7030; J7050; Q9967

== ENCOUNTER 2017-05-04 12:46 | Inpatient (IN) | payer MEDICARE, BC ==
[2017-05-04] VITALS (10 sets, daily range): BP systolic 136–150; BP diastolic 55–84; PULSE 58–75; RESP 14–16; TEMP 96.7–98; O2SAT 96–99
[~2017-05-04] VITALS: Ht 177.8 cm; Wt 93.6 kg
[~2017-05-04 12:46] MED LIST changes: +ACET500T13 PO; -BACT800T5 PO; -CEPH-460 PO; +CIPR-9 PO; -CLIN1CAP6 PO; +FURO20TA PO; +GABA300C5 PO; +TRAM50 PO
--- NOTE | 2017-05-04 13:13 | PD ---
HPI Chief Complaint: facial droop and difficulty walking Time Seen by Provider: 12:52 Travel History International Travel<30 days: No Contact w/Intl Traveler<30days: No Traveled to known affect area: No History of Present Illness HPI This patient has had poor balance and difficulty walking for the last couple of days. He is also developed a left-sided facial droop at that time. He has history of stroke in the past but according to him and these are new findings. He denies any extremity weakness or sensory loss or paresthesia or headache or confusion. Symptoms severity is moderate. No alleviating factors. No Exacerbating factors. Duration 48 hours PFSH Past Medical History Hx Anticoagulant Therapy: Yes (PLAVIX) Arthritis: Yes Anxiety: Yes Depression: Yes Cancer: No Cardiovascular Problems: No High Cholesterol: Yes Cerebrovascular Accident: Yes Diabetes: No Diminished Hearing: Yes (NO AIDES) Endocrine: No Gastrointestinal Disorders: No Genitourinary: No Hepatitis: No Hiatal Hernia: No Hypertension: Yes Immune Disorder: No Implanted Vascular Access Dvce: No Musculoskeletal: No Neurologic: No Psychiatric: Yes (CLAUSTROPHOBIC) Reproductive: No Respiratory: No Immunizations Current: Yes Thyroid Disease: No Past Surgical History Abdominal Surgery: No Body Medical Devices: DENTAL IMPLANTS Cardiac Surgery: Yes (carotid endarterectomy) Ear Surgery: No Endocrine Surgery: No Eye Surgery: Yes (CATARACT) Gynecologic Surgery: No Joint Replacement: No Neurologic Surgery: No Oral Surgery: Yes (SINUS SURGERY; DENTAL IMPLANTS) Pacemaker: No Thoracic Surgery: No Tonsillectomy: Yes Other Surgery: Yes (OLFACTORY NERVE) Social History Alcohol Use: Yes ("At least two beers/day") Tobacco Use: No Substance Use: No Allergies-Medications (Allergen,Severity, Reaction): Coded Allergies: No Known Allergies (Verified Adverse Reaction, Unknown, 05/04/17) Reported Meds & Prescriptions Reported Meds & Active Scripts Active Reported Clopidogrel (Clopidogrel Bisulfate) 75 Mg Tab 75 Mg PO DAILY Amlodipine (Amlodipine Besylate) 10 Mg Tab 10 Mg PO DAILY Losartan (Losartan Potassium) 50 Mg Tab 50 Mg PO DAILY Review of Systems General / Constitutional: No: Fever Eyes: No: Visual changes HENT: No: Headaches Cardiovascular: Positive: Irregular Rhythm, No: Chest Pain or Discomfort Respiratory: No: Shortness of Breath Gastrointestinal: No: Abdominal Pain Genitourinary: No: Dysuria Musculoskeletal: No: Pain Skin: No Rash Neurologic: Positive: Ataxia, No: Weakness Psychiatric: No: Depression Endocrine: No: Polydipsia Hematologic/Lymphatic: No: Easy Bruising Physical Exam Narrative GENERAL: Well-nourished, well-developed patient in no apparent distress. SKIN: Focused skin assessment reveals no rash and nodules. Skin is Warm and dry. HEAD: Atraumatic. Normocephalic. EYES: Pupils equal and round. No scleral icterus. No injection or drainage. ENT: No nasal bleeding or discharge. Mucous membranes pink and moist. NECK: Trachea midline. No JVD. CARDIOVASCULAR: Irregularly irregular rhythm. No murmur appreciated. RESPIRATORY: No accessory muscle use. Clear to auscultation. Breath sounds equal bilaterally. GASTROINTESTINAL: Abdomen soft, non-tender, nondistended. Hepatic and splenic margins not palpable. MUSCULOSKELETAL: No obvious deformities. No clubbing. No cyanosis. No edema. NEUROLOGICAL: Awake and alert. Has a left-sided facial droop. Motor grossly within normal limits. Normal speech. Sensation subjectively intact PSYCHIATRIC: Appropriate mood and affect; insight and judgment normal. Data Data Last Documented VS Vital Signs Date Time Temp Pulse Resp B/P (MAP) Pulse Ox O2 Delivery O2 Flow Rate FiO2 05/04/17 13:30 65 16 147/74 (98) 98 Room Air 05/04/17 12:46 98.0 Orders Orders Electrocardiogram (05/04/17 13:03) Prothrombin Time / Inr (Pt) (05/04/17 13:03) Act Partial Throm Time (Ptt) (05/04/17 13:03) Complete Blood Count With Diff (05/04/17 13:03) Basic Metabolic Panel (Bmp) (05/04/17 13:03) Ct Brain W/O Iv Contrast(Rout) (05/04/17 13:03) Ecg Monitoring (05/04/17 13:03) Iv Access Insert/Monitor (05/04/17 13:03) Oximetry (05/04/17 13:03) Blood Glucose (05/04/17 13:03) Sodium Chloride 0.9% Flush (Ns Flush) (05/04/17 13:15) Admit Order (Ed Use Only) (05/04/17 14:52) Labs Laboratory Tests Test 05/04/17 13:10 White Blood Count 4.2 TH/MM3 Red Blood Count 4.56 MIL/MM3 Hemoglobin 15.5 GM/DL Hematocrit 45.7 % Mean Corpuscular Volume 100.2 FL Mean Corpuscular Hemoglobin 33.9 PG Mean Corpuscular Hemoglobin Concent 33.9 % Red Cell Distribution Width 13.4 % Platelet Count 175 TH/MM3 Mean Platelet Volume 6.5 FL Neutrophils (%) (Auto) 63.8 % Lymphocytes (%) (Auto) 19.9 % Monocytes (%) (Auto) 13.6 % Eosinophils (%) (Auto) 2.0 % Basophils (%) (Auto) 0.7 % Neutrophils # (Auto) 2.7 TH/MM3 Lymphocytes # (Auto) 0.8 TH/MM3 Monocytes # (Auto) 0.6 TH/MM3 Eosinophils # (Auto) 0.1 TH/MM3 Basophils # (Auto) 0.0 TH/MM3 CBC Comment DIFF FINAL Differential Comment Prothrombin Time 10.7 SEC Prothromb Time International Ratio 1.0 RATIO Activated Partial Thromboplast Time 27.0 SEC Blood Urea Nitrogen 26 MG/DL Creatinine 1.30 MG/DL Random Glucose 107 MG/DL Calcium Level 8.6 MG/DL Sodium Level 134 MEQ/L Potassium Level 4.0 MEQ/L Chloride Level 100 MEQ/L Carbon Dioxide Level 25.8 MEQ/L Anion Gap 8 MEQ/L Estimat Glomerular Filtration Rate 53 ML/MIN [facility] Medical Decision Making Medical Screen Exam Complete: Yes Emergency Medical Condition: Yes Medical Record Reviewed: Yes Differential Diagnosis Ischemic CVA, intracranial hemorrhage, TIA Narrative Course I have reviewed the patient's electronic medical record. Reviewed his admission from last month. IV placed CBC is normal Metabolic profile is normal Coagulation studies are normal I reviewed 2 EKGs and they are difficult to interpret. They both list A. fib but there are some P waves noted but at times looks irregular. I recheck him later and printed out a strip which clearly shows sinus rhythm with a clear P waves in front of every QRS. Extended cardiac monitoring shows fair amount of ectopy This would be a new onset according the patient and He does take daily Plavix I ambulated him in the department with a walker and he shuffles and isn't very steady but didn't fall Brain CT shows old lacunar infarct but no hemorrhage Case reviewed in detail with primary physician Dr. Sheldon. She recommends telemetry observation for ischemic CVA and will conduct neurologic workup Diagnosis Primary Impression: Ischemic cerebrovascular accident (CVA) Admitting Information Admitting Physician Requests: Observation Harry Reynolds MD May 04, 2017 13:13
[2017-05-04] MEDS ORDERED: SODIUM CHLORIDE 0.9% FLUSH 10 ML FLUSH IVF PRN (13:15)
[2017-05-04 13:17] LABS: AUTOMATED NEUTROPHIL # 2.7 TH/MM3 (1.8-7.7); BASOPHIL % 0.7 % (0.0-2.0); EOSINOPHIL # 0.1 TH/MM3 (0-0.4); HEMATOCRIT 45.7 % (39.0-51.0); HEMO FLAGS DIFF FINAL; LYMPH % 19.9 % (9.0-44.0); LYMPHOCYTE # 0.8 TH/MM3 (1.0-4.8); MEAN CELL VOLUME 100.2 FL (80.0-100.0); MEAN CORPUSCULAR HEMOGLOBIN 33.9 PG (27.0-34.0); MEAN CORPUSCULAR HGB CONC 33.9 % (32.0-36.0); MONO % 13.6 % (0.0-8.0); NEUT % 63.8 % (16.0-70.0); PLATELET COUNT 175 TH/MM3 (150-450); RED BLOOD COUNT 4.56 MIL/MM3 (4.50-5.90); RED CELL DISTRIBUTION WIDTH 13.4 % (11.6-17.2); WHITE BLOOD COUNT 4.2 TH/MM3 (4.0-11.0)
[2017-05-04 13:30] LABS: BICARBONATE 25.8 MEQ/L (21.0-32.0)
[2017-05-04 13:32] LABS: PROTHROMBIN TIME - PATIENT 10.7 SEC (9.8-11.6)
--- NOTE | 2017-05-04 13:49 | RADRPT ---
EXAM DATE/TIME: 05/04/2017 13:38 [facility] COMPARISON: MRI BRAIN W & W/O CONTRAST, January 08, 2015, 10:03. CT BRAIN W/O CONTRAST, January 08, 2015, 5:40. INDICATIONS : Multiple falls. Left facial droop. Difficulty with ambulating. Evaluate for cerebrovascular accide nt. RADIATION DOSE: 65.06 CTDIvol (mGy) MEDICAL HISTORY : Cerebrovascular disease. Hypertension. SURGICAL HISTORY : Carotid endarterectomy. ENCOUNTER: Initial ACUITY: 2 days PAIN SCALE: 0/10 LOCATION: cranial TECHNIQUE: Multiple contiguous axial images were obtained of the head. Using automated exposure control and adj ustment of the mA and/or kV according to patient size, radiation dose was kept as low as reasonably a chievable to obtain optimal diagnostic quality images. DICOM format image data is available electro nically for review and comparison. FINDINGS: CEREBRUM: The ventricles are normal for age with moderate atrophic change. No evidence of midline shift, mass l esion, hemorrhage or acute infarction. There are old lacunar infarcts in the basal ganglia. No extra- axial fluid collections are seen. POSTERIOR FOSSA: The cerebellum and brainstem are intact. The 4th ventricle is midline. The cerebellopontine angle i s unremarkable. EXTRACRANIAL: The visualized portion of the orbits is intact. SKULL: The calvaria is intact. No evidence of skull fracture. CONCLUSION: 1. No acute hemorrhage or mass effect. 2. Old small lacunar infarcts in the basal ganglia. Isaías Cazares MD on May 04, 2017 at 13:46 Board Certified Radiologist. This report was verified electronically.
[2017-05-04] MEDS ORDERED: GLUCAGON 1 MG/ML VIAL OTHER PRN (22:30)
[2017-05-04] MEDS ORDERED: SODIUM CHLORIDE 0.9% FLUSH 5 ML FLUSH IV FLUSH PRN (22:30)
[2017-05-04] MEDS ORDERED: DEXTROSE 50% IN WATER 50 ML VIAL(D50) IV PUSH PRN (22:30)
[2017-05-04] MEDS ORDERED: ENOXAPARIN SODIUM 40 MG/0.4 ML SYRINGE SQ SCH (22:30)
[2017-05-05] VITALS (9 sets, daily range): BP systolic 145–170; BP diastolic 70–87; PULSE 62–85; RESP 16–24; TEMP 97.5–99.7; O2SAT 93–99
[2017-05-05 04:48] LABS: BASOPHIL % 0.9 % (0.0-2.0); EOSINOPHIL # 0.1 TH/MM3 (0-0.4); EOSINOPHIL % 3.1 % (0.0-4.0); HEMATOCRIT 44.3 % (39.0-51.0); HEMO FLAGS DIFF FINAL; MEAN CELL VOLUME 99.6 FL (80.0-100.0); MEAN CORPUSCULAR HEMOGLOBIN 33.6 PG (27.0-34.0); MEAN CORPUSCULAR HGB CONC 33.8 % (32.0-36.0); MONO % 9.4 % (0.0-8.0); NEUT % 58.6 % (16.0-70.0); PLATELET COUNT 179 TH/MM3 (150-450); RED BLOOD COUNT 4.45 MIL/MM3 (4.50-5.90); RED CELL DISTRIBUTION WIDTH 13.1 % (11.6-17.2); WHITE BLOOD COUNT 3.4 TH/MM3 (4.0-11.0)
[2017-05-05] MEDS: INSULIN ASPART SUPPLEMENTAL SCALE SQ SCH ×4 (08:00→20:39)
[2017-05-05] MEDS ORDERED: ASPIRIN 325 MG TAB PO SCH (09:00)
--- NOTE | 2017-05-05 09:01 | HHI.HP ---
[facility] Primary Care Physician Judy Sheldon MD Admission Diagnosis Ischemic CVA Diagnoses: (1) TIA (transient ischemic attack) (2) Facial droop (3) Unsteadiness on feet Chief Complaint: Left facial droop and unsteadiness Travel History International Travel<30 Days: No Contact w/Intl Traveler <30 Da: No Traveled to Known Affected Are: No History of Present Illness Written by Cynthia Dye, acting as scribe for Dr. Rodriguez on 05/05/17 at 0900. Mr. Mendenhall is a 81-year-old male patient with a known medical history of hyperlipemia, HTN and history of CVA who presented with new onset of facial droop and unsteadiness. Patient states that roughly a month ago he was working on his dock and dropped something on his left foot causing a large hematoma. Patient states he went to his doctor and imaging was performed showing a fracture with no recommendations for surgical intervention. At that time no boot or interventions were initiated. Patient has for the past 3-4 weeks fallen roughly 12 times at home due to unsteadiness and "his foot getting caught". He denies any associated lightheadedness, dizziness, MOISE, blurry vision, diplopia during these falls. Denies ever hitting his head or loosing consciousness. Patient has noticed within the last couple days his left foot "getting caught" more often and has developed a left sided facial droop with left sided weakness which prompted his presentation to the ED. He states that he does not know what has been happening but he feels overall "clumsy" in both fine and gross motor movements and activities. Denies any recent illness including fever, chills, cough, shortness of breath, chest pain, nausea, vomiting, abdominal pain, or dysuria. Denies any changes in his prescribed medications. He does say he has had a diagnosis of dyslipidemia but has not been taking his statin therapy due to musculoskeletal side effects. Review of Systems Constitutional: DENIES: Fever, Chills Eyes: DENIES: Blurred vision, Diplopia Ears, nose, mouth, throat: DENIES: Tinnitus, Hearing loss Respiratory: DENIES: Cough, Shortness of breath Cardiovascular: DENIES: Chest pain Gastrointestinal: DENIES: Abdominal pain, Constipation, Diarrhea, Nausea Musculoskeletal: DENIES: Joint pain Neurologic: COMPLAINS OF: Abnormal gait, Poor Balance (left facial droop ) Psychiatric: DENIES: Anxiety Except as stated in HPI: all other systems reviewed are Neg Past Family Social History Past Medical History Dyslipidemia Hypertension History of CVA on Plavix. Past Surgical History Right carotid endarterectomy Bilateral cataracts and Lasic surgery Sinus surgery Reported Medications Active Reported Clopidogrel (Clopidogrel Bisulfate) 75 Mg Tab 75 Mg PO DAILY Amlodipine (Amlodipine Besylate) 10 Mg Tab 10 Mg PO DAILY Losartan (Losartan Potassium) 50 Mg Tab 50 Mg PO DAILY Allergies: Coded Allergies: No Known Allergies (Verified Allergy, Unknown, 05/04/17) Active Ordered Medications Current Medications Medications (Trade) Dose Ordered Sig/Reggie Route Start Time Stop Time Status Last Admin (NS Flush) 2 ml UNSCH PRN IVF 05/04/17 13:15 (NS Flush) 2 ml BID IV FLUSH 05/05/17 09:00 (NS Flush) 2 ml UNSCH PRN IV FLUSH 05/04/17 22:30 (Aspirin) 325 mg DAILY PO 05/05/17 09:00 (Pravachol) 40 mg HS PO 05/05/17 21:00 (NovoLOG SUPPLEMENTAL SCALE) 1 ACHS SQ 05/05/17 08:00 (D50w (Vial) Inj) 50 ml UNSCH PRN IV PUSH 05/04/17 22:30 (Glucagon Inj) 1 mg UNSCH PRN OTHER 05/04/17 22:30 (Lovenox Inj) 40 mg HS SQ 05/04/17 22:30 05/04/17 23:04 Family History Patient denies any known significant family medical history. Social History Denies any current tobacco use, does admit to quitting cigarettes 35 years ago. Admits to drinking 2-3 beers per day. Denies any illicit drug use. Physical Exam Vital Signs Vital Signs Date Time Temp Pulse Resp B/P (MAP) Pulse Ox O2 Delivery O2 Flow Rate FiO2 05/05/17 08:00 97.5 83 16 153/87 (109) 93 05/05/17 04:00 99.7 64 18 167/70 (102) 97 05/05/17 00:00 98.0 65 18 159/70 (99) 96 05/04/17 23:45 96 21 05/04/17 21:00 97.0 60 16 136/62 (86) 98 05/04/17 21:00 97.0 60 16 136/62 (86) 98 05/04/17 20:09 58 05/04/17 17:22 140/73 (95) 97 05/04/17 17:20 96.7 65 14 150/80 (103) 99 05/04/17 15:31 75 16 145/84 (104) 97 Room Air 05/04/17 15:00 64 16 98 Room Air 05/04/17 14:30 64 16 141/55 (83) 97 Room Air 05/04/17 13:30 65 16 147/74 (98) 98 Room Air 05/04/17 12:50 71 16 98 Room Air 05/04/17 12:50 16 98 Room Air 05/04/17 12:46 98.0 71 16 149/66 (93) 98 Physical Exam GENERAL: This is a well-nourished, well-developed male patient, lying in bed in no apparent distress. SKIN: No rashes, ecchymoses or lesions. Warm and dry. HEAD: Atraumatic. Normocephalic. Pupils equal round and reactive. Extraocular motions intact. No scleral icterus. No injection or drainage. Left facial droop. Sensation equal and intact. Nose without bleeding. Throat without erythema, tonsillar hypertrophy or exudate. Uvula midline. Airway patent. NECK: Trachea midline. No JVD. Supple. CARDIOVASCULAR: Regular rate and rhythm without murmurs, gallops, or rubs. RESPIRATORY: Clear to auscultation. Breath sounds equal bilaterally. No wheezes , rales, or rhonchi. GASTROINTESTINAL: Abdomen soft, non-tender, nondistended. No guarding. MUSCULOSKELETAL: Extremities without clubbing, cyanosis, or edema. No joint tenderness, effusion, or edema noted. NEUROLOGICAL: Awake and alert. Cranial nerves II through XII intact. Motor and sensory grossly within normal limits. Five out of 5 muscle strength in right side, all muscle groups. Four out of 5 muscle strength in left side, upper and lower extremities. Normal speech. Laboratory Laboratory Tests Test 05/04/17 13:10 11/17/17 22:45 05/05/17 04:40 White Blood Count 4.2 3.4 Red Blood Count 4.56 4.45 Hemoglobin 15.5 15.0 Hematocrit 45.7 44.3 Mean Corpuscular Volume 100.2 99.6 Mean Corpuscular Hemoglobin 33.9 33.6 Mean Corpuscular Hemoglobin Concent 33.9 33.8 Red Cell Distribution Width 13.4 13.1 Platelet Count 175 179 Mean Platelet Volume 6.5 6.8 Neutrophils (%) (Auto) 63.8 58.6 Lymphocytes (%) (Auto) 19.9 28.0 Monocytes (%) (Auto) 13.6 9.4 Eosinophils (%) (Auto) 2.0 3.1 Basophils (%) (Auto) 0.7 0.9 Neutrophils # (Auto) 2.7 2.0 Lymphocytes # (Auto) 0.8 1.0 Monocytes # (Auto) 0.6 0.3 Eosinophils # (Auto) 0.1 0.1 Basophils # (Auto) 0.0 0.0 CBC Comment DIFF FINAL DIFF FINAL Differential Comment Prothrombin Time 10.7 Prothromb Time International Ratio 1.0 Activated Partial Thromboplast Time 27.0 Blood Urea Nitrogen 26 Creatinine 1.30 Random Glucose 107 Calcium Level 8.6 Sodium Level 134 Potassium Level 4.0 Chloride Level 100 Carbon Dioxide Level 25.8 Anion Gap 8 Estimat Glomerular Filtration Rate 53 Troponin I LESS THAN 0.02 LESS THAN 0.02 Result Diagram: 05/05/17 1450 05/05/17 1030 Imaging Last Impressions Head CT 05/04/17 1303 Signed Impressions: Service Date/Time: Thursday, May 04, 2017 13:38 - CONCLUSION: 1. No acute hemorrhage or mass effect. 2. Old small lacunar infarcts in the basal ganglia. Isaías Cazares MD Caprini VTE Risk Assessment Caprini VTE Risk Assessment: Mod/High Risk (score >= 2) Caprini Risk Assessment Model Point Value = 1 Point Value = 2 Point Value = 3 Point Value = 5 Age 41-60 Minor surgery BMI > 25 kg/m2 Swollen legs Varicose veins or History of unexplained or recurrent spontaneous Oral contraceptives or hormone replacement Sepsis (< 1 month) Serious lung disease, including pneumonia (< 1 month) Abnormal pulmonary function Acute myocardial infarction Congestive heart failure (< 1 month) History of inflammatory bowel disease Medical patient at bed rest Age 61-74 Arthroscopic surgery Major open surgery (> 45 min) Laparoscopic surgery (> 45 min) Malignancy Confined to bed (> 72 hours) Immobilizing plaster cast Central venous access Age >= 75 History of VTE Family history of VTE Factor V Leiden Prothrombin [id number] Lupus anticoagulant Anticardiolipin antibodies Elevated serum homocysteine Heparin-induced thrombocytopenia Other congenital or acquired thrombophilia Stroke (< 1 month) Elective arthroplasty Hip, pelvis, or leg fracture Acute spinal cord injury (< 1 month) Prophylaxis Regimen Total Risk Factor Score Risk Level Prophylaxis Regimen 0-1 Low Early ambulation 2 Moderate Order ONE of the following: *Sequential Compression Device (SCD) *Heparin 5000 units SQ BID 3-4 Higher Order ONE of the following medications: *Heparin 5000 units SQ TID *Enoxaparin/Lovenox 40 mg SQ daily (WT < 150 kg, CrCl > 30 mL/min) *Enoxaparin/Lovenox 30 mg SQ daily (WT < 150 kg, CrCl > 10-29 mL/min) *Enoxaparin/Lovenox 30 mg SQ BID (WT < 150 kg, CrCl > 30 mL/min) AND/OR *Sequential Compression Device (SCD) 5 or more Highest Order ONE of the following medications: *Heparin 5000 units SQ TID (Preferred with Epidurals) *Enoxaparin/Lovenox 40 mg SQ daily (WT < 150 kg, CrCl > 30 mL/min) *Enoxaparin/Lovenox 30 mg SQ daily (WT < 150 kg, CrCl > 10-29 mL/min) *Enoxaparin/Lovenox 30 mg SQ BID (WT < 150 kg, CrCl > 30 mL/min) AND *Sequential Compression Device (SCD) Assessment and Plan Assessment and Plan Mr. Mendenhall is a 81-year-old male patient with a known medical history of hyperlipemia, HTN and history of CVA who presented with new onset of facial droop and unsteadiness. Rule out acute CVA vs TIA, presence of facial droop, left sided weakness and unsteady gait History of CVA CBC reviewed which is essentially unremarkable. BMP unremarkable. EKG reviewed with initial one showing possible presence of atrial fibrillation. Continue cardiac telemetry, monitor for any presence of cardiac telemetry. Continue home Plavis. Brain CT reviewed showing no acute hemorrhage or mass effect. Old small lacunar infarcts in the basal ganglia. MRI/MRA brain ordered and pending. Follow. Aspirin 325 mg PO daily scheduled. Supplemental O2 to keep sats >92%. Supportive care. Lipid profile ordered. Follow. ECHO ordered and pending. Carotid ultrasound ordered was well. Follow. Consult placed to neurology, appreciate further input and recommendations. PT/OT evaluation ordered, appreciate input. Speech also consulted, evaluate for any dysphagia. Keep NPO for now. Left foot injury Obtain left lower extremity x-ray. Follow results. Supportive care. Hypertension, chronic: Systoic BP 150's-160's, allow some permissive hypertension. Hold home BP medications at this time and continue to monitor. Dyslipidemia, chronic: Continue home Pravastatin. DVT Prophylaxis: SCDs. Lovenox. This note was transcribed by sg Dye. I, Dr. Josephine Rodriguez personally performed the history, physical exam, and medical decision making; and confirmed the accuracy of the information in the transcribed note. Authenticated by Dr. Josephine Rodriguez on 05/05/17 at 15:50. Addendum to Inpatient Note Additional Information Brain MRI shows multiple foci of acute infarct in the right MCA distribution, now total occlusion of the right internal carotid artery. Patient also has been somewhat agitated and noncompliant with nursing staff trying to get out of bed. He was given Ativan for the MRIs he is severely claustrophobic. Discussed with Dr. You. Patient to be placed on heparin drip. We will move patient to intermediate care for closer monitoring. Discussed with patient 's at bedside. Cynthia Dye May 05, 2017 09:00 Josephine Rodriguez MD May 05, 2017 15:50
[2017-05-05] MEDS: SODIUM CHLORIDE 0.9% FLUSH 5 ML FLUSH IV FLUSH SCH ×2 (09:34→20:39)
--- NOTE | 2017-05-05 09:36 | EKG ---
Date Performed: 05/04/2017 Time Performed: 13:02:58 PTAGE: 81 years EKG: Sinus bradycardia with PVCs MODERATE T-WAVE ABNORMALITY, CONSIDER ANTERIOR ISCHEMIA Compare d to previous tracing, no significant change ABNORMAL ECG PREVIOUS TRACING : 05/04/2017 12.52 DOCTOR: Jn Jordan Interpretating Date/Time 05/05/2017 09:34:52
[2017-05-05] MEDS ORDERED: LORazepam 2 MG/ML VIAL IV PUSH PRN (10:30)
[2017-05-05 10:57] LABS: CHLORIDE 105 MEQ/L (98-107); POTASSIUM 3.8 MEQ/L (3.5-5.1); SODIUM (NA) 138 MEQ/L (136-145)
[2017-05-05 11:00] LABS: ANION GAP 13 MEQ/L (5-15); BICARBONATE 20.5 MEQ/L (21.0-32.0); BLOOD UREA NITROGEN 21 MG/DL (7-18)
[2017-05-05 11:03] LABS: GLOMERULAR FILTRATION RATE 72 ML/MIN (>89)
[2017-05-05] MEDS: SODIUM CHLOR 0.9% 1000 ML INJ 1,000 ML IV SCH ×2 (11:15→20:40)
[2017-05-05 12:20] LABS: HDL CHOLESTEROL 61.1 MG/DL (40.0-60.0)
--- NOTE | 2017-05-05 12:54 | RADRPT ---
EXAM DATE/TIME: 05/05/2017 11:25 [facility] COMPARISON: No previous studies available for comparison. INDICATIONS : Cerebrovascular accident. MEDICAL HISTORY : Hypercholesterolemia. Hypertension. Hearing loss. Cerebrovascular accident. Coronary artery disease . Anticoagulant therapy. Afib. Kidney trauma. Arthritis.Depression. Anxiety. SURGICAL HISTORY : Tonsillectomy. Right carotid endarterectomy. Right breast lumpectomy. Left hand surgery. Right el bow surgery. Nasal surgery. Cataract removal. ENCOUNTER: Initial ACUITY: 1 day PAIN SCORE: 0/10 LOCATION: Bilateral neck PEAK SYSTOLIC VELOCITIES (cm/sec): ICA/CCA RATIO: Right: N/A Left: 1.1 ICA: Right: 0 Left: 93 CCA: Right: 39 Left: 83 ECA: Right: 185 Left: 78 VERTEBRAL: Right: 33 antegrade Left: 60 antegrade Elevated flow velocities and ICA/CCA ratios have been found to correlate with increased degrees of vessel stenosis, calculated as percentage of diameter relative to a normal segment of distal ICA/CCA FINDINGS: RIGHT CAROTID: No flow identified in the internal carotid artery suggesting occlusion at its origin. LEFT CAROTID: No significant stenosis is visualized. The waveforms are within normal limits. VERTEBRAL ARTERIES: Antegrade flow is seen in both vertebral arteries. MISCELLANEOUS: None. CONCLUSION: No flow identified in the right internal carotid artery suggesting occlusion at its origin. No eviden ce of hemodynamically significant stenosis on the left. Charly Sifuentes MD on May 05, 2017 at 12:50 Board Certified Radiologist. This report was verified electronically.
--- NOTE | 2017-05-05 13:10 | RADRPT ---
EXAM DATE/TIME: 05/05/2017 11:51 [facility] COMPARISON: FOOT LEFT COMPLETE ([id number]), March 12, 2017, 17:28. INDICATIONS : Complains of left foot pain. Patient states he dropped a piece of wood on his foot. MEDICAL HISTORY : None. SURGICAL HISTORY : None. ENCOUNTER: Initial ACUITY: 2 months PAIN SCORE: 2/10 LOCATION: Left foot FINDINGS: 3 views of the left foot. Evidence of an old fracture of the proximal phalanx of the fifth toe. No ev idence of acute fracture. Bone alignment within normal limits. Small plantar calcaneal spur. CONCLUSION: No acute fracture identified. Charly Sifuentes MD on May 05, 2017 at 13:07 Board Certified Radiologist. This report was verified electronically.
--- NOTE | 2017-05-05 13:23 | RADRPT ---
EXAM DATE/TIME: 05/05/2017 12:43 [facility] COMPARISON: No previous studies available for comparison. INDICATIONS : CVA. MEDICAL HISTORY : Cerebrovascular disease. Hypertension. SURGICAL HISTORY : Carotid endarterectomy. ENCOUNTER: Subsequent ACUITY: 3 day PAIN SCORE: 3/10 LOCATION: cranial TECHNIQUE: Multiplanar, multisequence MRI of the brain was performed without contrast. FINDINGS: Multiple foci of restricted diffusion in the right MCA territory including the right basal ganglia an d periventricular right frontoparietal region as well as multiple more peripheral cortical foci of ab normality in the parietal lobe. Findings indicate acute infarct. The largest area of abnormality is s een in the region of the basal ganglia/internal capsule measuring 3 cm x 1.2 cm. There are associated signal abnormalities on the flair and T2-weighted images. No mass effect or midline shift. No eviden ce of intracranial hemorrhage. Diffuse atrophy noted. CONCLUSION: Multiple foci of acute infarct involving the right MCA distribution, most prominent centrally at the basal ganglia region. No evidence of midline shift. No evidence of hemorrhage. Charly Sifuentes MD on May 05, 2017 at 13:18 Board Certified Radiologist. This report was verified electronically.
--- NOTE | 2017-05-05 13:33 | RADRPT ---
EXAM DATE/TIME: 05/05/2017 12:43 [facility] COMPARISON: MRA BRAIN W/O CONTRAST, January 08, 2015, 10:03. INDICATIONS : Stroke. MEDICAL HISTORY : Cerebrovascular disease. Hypertension. SURGICAL HISTORY : Carotid endarterectomy. ENCOUNTER: Subsequent ACUITY: 3 day PAIN SCORE: 3/10 LOCATION: cranial Please note a normal MRA of the brain does not entirely exclude the possibility of a small aneurysm, nor the possibility of distal intracranial vessel disease. TECHNIQUE: 3D time of flight MRA was performed. Source images, multiplanar STS MIP, and 3D volume MIP reconstru ctions were reviewed. FINDINGS: The A1 division of the right anterior cerebral artery is stick., And left middle cerebral artery, low er artery, posterior cerebral and superior cerebellar arteries as well as distal vertebral arteries a re patent. A dominant left vertebral artery is noted. There are a few scattered foci of narrowing see n within the middle cerebral artery on the left, right posterior cerebral artery P2 segment, origin o f the right posterior cerebral artery. There is no aneurysm. On the current examination the right int ernal carotid artery demonstrates minimal flow with diminutive signal in the right middle cerebral ar lacho as a result. There is focal moderate stenosis of the left internal carotid artery cavernous segm ent. CONCLUSION: Right internal carotid artery near occlusion with some flow noted in the right middle cerebral artery Samuel Morales MD on May 05, 2017 at 13:28 Board Certified Radiologist. This report was verified electronically.
[2017-05-05] MEDS ORDERED: IOHEXOL 350 MG/ML 10 ML VIAL (for RAD DIAG) IVCONTRAST ONE (14:30)
[2017-05-05] MEDS ORDERED: SODIUM CHLOR 0.9% 1000 ML INJ 1,000 ML IV SCH (14:33)
[2017-05-05 15:05] LABS: HEMATOCRIT 43.7 % (39.0-51.0); MEAN CELL VOLUME 100.3 FL (80.0-100.0); MEAN CORPUSCULAR HEMOGLOBIN 33.7 PG (27.0-34.0); MEAN CORPUSCULAR HGB CONC 33.6 % (32.0-36.0); PLATELET COUNT 154 TH/MM3 (150-450); RED BLOOD COUNT 4.35 MIL/MM3 (4.50-5.90); RED CELL DISTRIBUTION WIDTH 13.2 % (11.6-17.2); REVIEW FLAG FINAL; WHITE BLOOD COUNT 2.8 TH/MM3 (4.0-11.0)
--- NOTE | 2017-05-05 15:05 | MB ---
cc: SIOMARA MACIAS M.D. DATE OF CONSULTATION: 05/05/2017 REASON FOR CONSULTATION: Patient is a 81-year-old right-handed man with history of hypertension, hypercholesterolemia, although not been taking a statin due to some pain in the legs and he had a right carotid endarterectomy done in 2014 when he had an episode which may have been transient global amnesia. Never the less he had the endarterectomy done and done well. He has been on Plavix and then on Sunday his noticed that he had a left facial droop and then over the next several days. He seemed to get weaker on the left side where he is dragging his left leg. REVIEW OF SYSTEMS No history of diabetes, myocardial infarction, stent angioplasty, known atrial fibrillation or Coumadin. His EKG was read as a fib in the ER but does have P-waves there. He is no history of renal, hepatic, pulmonary disease, thyroid disease lupus, ulcer cancer seizure, known stroke. SOCIAL HISTORY He is to be a smoker not anymore. He has four drinks of alcohol two beers and vodka every night. Lives with his . FAMILY HISTORY Negative cancer seizure. Positive stroke in his mother. MEDICATIONS 1. He takes Plavix. 2. Amlodipine. 3. Losartan. ALLERGIES NO KNOWN DRUG ALLERGIES PHYSICAL EXAMINATION: VITAL SIGNS: On exam afebrile, T-max 99.7 85, 18. He has been sinus rhythm on tele 148/82. There were no carotid bruits. HEART: Heart was regular rhythm, I did not detect a murmur. NEUROLOGIC: Pupils are equal. Visual patino are actually full. Face is the left facial droop. I would put mild to moderate tongue was midline. He had normal strength in upper lower extremities bilaterally but there is a left drift. Toes downgoing bilaterally. DTRs trace. Pinprick appeared to be into intact throughout. Double simultaneous stimuli was intact. The legs his speech is slow he is not aphasic. He knew the year was one off on the month, he thought he was at home. LABORATORY DATA His RPR has been negative in the past. A UA has been somewhat positive in 2015. Alcohol level was 215. Basic metabolic profile is essentially normal. Calcium 8.4, troponin negative. LDL cholesterol 115. B12 was 310 2 years ago. TSH was normal at that time. Coags normal BMP white count 3.4 otherwise normal as 4.2 yesterday. MRI of the brain shows acute infarcts in the right middle cerebral artery territory a smattering of infarcts a little bit of conglomeration of infarcts around basal ganglion and were periventricular on the right side. There is an old small right posterior division MCA cortical infarct seen. MRA of the [place] shows that the right middle cerebral artery has poor flow and does not get any contribution from the posterior communicating artery. In fact those are absent bilaterally and seems to reconstitute almost itself. I do not see any type of flow into it. Carotid ultrasound showed a right ICA occlusion. CTA which shows a little bit better the flow there, and probably need to get. Creatinine looks good so we will get that. Other labs he had an echocardiogram done in 2014, it showed normal ejection fraction, aortic and mitral valves were normal. The left atrial size was 45. IMPRESSION Right probable carotid occlusion. We would do Holter on him and a echo and I would like he is CTA to see if the right carotid is in fact totally occluded, and will keep his head bed flat IV hydration, keep his blood pressure up. I am going to put him on some IV heparin to prevent a stump embolism and some Coumadin and I will be following with you in the hospital. I know he has been put on Pravachol here so we will have to make sure that he does not have any musculoskeletal side effects from that. To watch for any alcohol withdrawal and will be following him with you in the hospital. I would ask that he not get any sedatives overnight. His hopefully will stay, if not he might need a sitter with the TV and lights off at 9 o'clock so that the can be quiet as he is a little bit agitated to avoid any sedatives overnight which may drop his blood pressure down and extend his infarct. MD ANITA Bucio/sal /2:33 PM /2:57 PM
[2017-05-05 15:17] LABS: APTT (PATIENT) 28.5 SEC (24.3-30.1); PROTHROMBIN TIME - PATIENT 11.1 SEC (9.8-11.6)
--- NOTE | 2017-05-05 15:25 | ECHRPT ---
Indication: Transient cerebral ischemic attack, unspecified CONCLUSIONS The transthoracic study is normal by two-dimensional, color flow imaging and Doppler interrogation. Normal left ventricular size wall thickness is measured at the upper limits of normal. Ef=65% No mitral valve stenosis, trace to mild mitral valve regurgitation. . The pulmonary valve is not well visualized. BP: / HR: Rhythm: MEASUREMENTS (Male / Female) Normal Values Technical Quality: 2D ECHO LV Diastolic Diameter PLAX 5.0 cm 4.2 - 5.9 / 3.9 - 5.3 cm LV Systolic Diameter PLAX 3.6 cm IVS Diastolic Thickness 1.4 cm 0.6 - 1.0 / 0.6 - 0.9 cm LVPW Diastolic Thickness 1.4 cm 0.6 - 1.0 / 0.6 - 0.9 cm LV Relative Wall Thickness 0.6 RV Internal Dim ED PLAX 3.1 cm M-MODE Aortic Root Diameter MM 4.1 cm LA Systolic Diameter MM 4.0 cm LA Ao Ratio MM 1.0 AV Cusp Separation MM 1.9 cm FINDINGS LEFT VENTRICLE Normal left ventricular size wall thickness is measured at the upper limits of normal. s. The left ventricular systolic function is normal with an estimated ejection fraction in the range of 60-65%. Left ventricular diastolic function parameters are normal. RIGHT VENTRICLE Normal right ventricular size and systolic function. LEFT ATRIUM The left atrial size is normal. RIGHT ATRIUM The right atrial size is normal. ATRIAL SEPTUM Normal atrial septal thickness without atrial level shunting by limited color doppler interrogation. AORTA The aortic root and proximal ascending aorta are normal in size on limited imaging. MITRAL VALVE Structurally normal mitral valve. No mitral valve stenosis, trace mitral valve regurgitation. . AORTIC VALVE Trileaflet aortic valve. No aortic valve stenosis or regurgitation. TRICUSPID VALVE Structurally normal tricuspid valve. No tricuspid valve stenosis or regurgitation. PULMONARY VALVE The pulmonary valve is not well visualized. VESSELS The inferior vena cava is normal in size. PERICARDIUM No pericardial effusion. Godfrey Arriaga MD, FACC, [facility] [place] (Electronically Signed) Final Date:05 May 2017 15:24
[2017-05-05] MEDS: WARFARIN SOD 5 MG TAB PO SCH (15:57)
[2017-05-05] MEDS: HEPARIN-D5W 25,000 U/250 ML 250 ML IV PRN (16:20)
--- NOTE | 2017-05-05 16:36 | RADRPT ---
EXAM DATE/TIME: 05/05/2017 15:00 [facility] COMPARISON: MRA BRAIN W/O CONTRAST, May 05, 2017, 12:43. MRI BRAIN W/O CONTRAST, May 05, 2017, 12:43. CTA BRAIN W 3D RECON, May 05, 2017, 15:00. INDICATIONS : Recent CVA, facial droop, left foot weakness. IV CONTRAST: 100 cc Omnipaque 350 (iohexol) IV ; Cumulative dose for multiple exams. RADIATION DOSE: 43.13 CTDIvol (mGy) ; Combined studies MEDICAL HISTORY : Cerebrovascular disease. Hypertension. CVA, Hyperlipedema SURGICAL HISTORY : Carotid endarectomy, Right lumpectomy breast. ENCOUNTER: Initial ACUITY: 2 days PAIN SCALE: 0/10 LOCATION: neck Elevated flow velocities and ICA/CCA ratios have been found to correlate with increased degrees of vessel stenosis, calculated as percentage of diameter relative to a normal segment of distal ICA/CCA. TECHNIQUE: Volumetric scanning was performed using a multirow detector CT scanner. The data was post processed with a variety of visualization algorithms including full-volume maximum intensity projection, multip lanar sliding thin-slab reformation, curved-planar reformation, and surface-rendering techniques. Us ing automated exposure control and adjustment of the mA and/or kV according to patient size, radiatio n dose was kept as low as reasonably achievable to obtain optimal diagnostic quality images. DICOM f ormat image data is available electronically for review and comparison. FINDINGS: AORTIC ARCH: There is a three-vessel origin of the great vessels from the aorta. No evidence of ostial narrowing. RIGHT CAROTID: E. right common carotid artery is patent. Just distal to the bifurcation there is abrupt decrease in caliber of the right internal carotid artery with a string sign noted and occlusion occurs at the C3- 4 level. There is contrast seen within the right supraclinoid internal carotid artery and right middl e cerebral artery. LEFT CAROTID: The common carotid artery is intact. The carotid bulb has a normal configuration without ulceration or narrowing. The internal carotid artery lumen is smooth without stenosis. The external carotid ar lacho is intact. VERTEBRALS: The vertebral arteries have a symmetric diameter. No stenotic lesions are seen. CONCLUSION: Right internal carotid artery is occluded in the neck. No evidence for hemodynamically significant st enosis of the left internal carotid artery. Samuel Morales MD on May 05, 2017 at 16:30 Board Certified Radiologist. This report was verified electronically.
--- NOTE | 2017-05-05 16:48 | RADRPT ---
EXAM DATE/TIME: 05/05/2017 15:00 [facility] COMPARISON: No previous studies available for comparison. INDICATIONS : Recent CVA, left foot weakness facial droop. IV CONTRAST: 100 cc Omnipaque 350 (iohexol) IV ; Cumulative dose for multiple exams. RADIATION DOSE: 43.13 CTDIvol (mGy) ; Combined studies MEDICAL HISTORY : Cerebrovascular disease. Hypertension. Hyperlipedema SURGICAL HISTORY : Carotid endarectomy, Right breast lumpectomy. ENCOUNTER: Initial ACUITY: 2 days PAIN SCALE: 0/10 LOCATION: cranial TECHNIQUE: Volumetric scanning was performed using a multi-row detector CT scanner. The data was post processed with a variety of visualization algorithms including full volume maximum intensity projection, multi -planar sliding thin slab reformation, curved planar reformation, and surface rendering techniques. Using automated exposure control and adjustment of the mA and/or kV according to patient size, radiat ion dose was kept as low as reasonably achievable to obtain optimal diagnostic quality images. DICO M format image data is available electronically for review and comparison. FINDINGS: The right internal carotid artery is occluded below the skull base. Visualized left internal carotid artery fills normally. Anterior communicating artery is patent. There are fairly well-developed bilateral posterior communic ating arteries. The right A1 segment is small on a congenital/developmental basis but filling of the right middle through artery branches is only slightly decreased relative to the left. There is normal filling of the bilateral posterior and anterior cerebral arteries. Dominant left vertebral artery. Normal basilar. No aneurysm. CONCLUSION: Extracranial occlusion of the right internal carotid artery. Modestly decreased filling of the right middle cerebral artery. Naresh Lr MD on May 05, 2017 at 16:44 Board Certified Radiologist. This report was verified electronically.
[2017-05-05 19:03] LABS: FREE T4 1.38 NG/DL (0.76-1.46)
[2017-05-05] MEDS ORDERED: PRAVASTATIN SOD 40 MG TAB PO SCH (21:00)
[2017-05-05 23:13] LABS: APTT (PATIENT) 41.8 SEC (24.3-30.1)
[2017-05-06] VITALS (14 sets, daily range): BP systolic 154–185; BP diastolic 70–88; PULSE 60–81; RESP 18–32; TEMP 97.3–98.6; O2SAT 95–98
[2017-05-06 05:39] LABS: APTT (PATIENT) 38.7 SEC (24.3-30.1); INTERNATIONAL NORMALIZED RATIO 1.2 RATIO; PROTHROMBIN TIME - PATIENT 13.9 SEC (9.8-11.6)
[2017-05-06] MEDS: INSULIN ASPART SUPPLEMENTAL SCALE SQ SCH ×4 (08:00→21:00)
[2017-05-06] MEDS: SODIUM CHLORIDE 0.9% FLUSH 5 ML FLUSH IV FLUSH SCH ×2 (08:31→21:00)
[2017-05-06] MEDS ORDERED: CLOPIDOGREL 75 MG TAB PO SCH (09:00)
[2017-05-06 10:14] LABS: HEMOGLOBIN A1a 0.6 %; HEMOGLOBIN A1b 0.8 %; HEMOGLOBIN Ao 86.9 %; HEMOGLOBIN F 0.6 %; HEMOGLOBIN LA1C 1.8 %; HEMOGLOBIN P3 3.4 %
[2017-05-06 11:17] LABS: APTT (PATIENT) 39.1 SEC (24.3-30.1)
[2017-05-06] MEDS: SODIUM CHLOR 0.9% 1000 ML INJ 1,000 ML IV SCH ×2 (11:21→21:23)
[2017-05-06] MEDS: HEPARIN-D5W 25,000 U/250 ML 250 ML IV PRN (13:42)
--- NOTE | 2017-05-06 16:01 | HHI.PR ---
Subjective Remarks Patient was slightly agitated this morning and pulled out an IV, new IV was placed. Patient's agitation resolved when his arrived bedside. Patient's notes that he was slightly confused earlier but is now alert and oriented. Patient denies any pain or confusion. He is able to tell me the date. No new neurologic symptoms reported. Objective Vitals Vital Signs Date Time Temp Pulse Resp B/P (MAP) Pulse Ox O2 Delivery O2 Flow Rate FiO2 05/06/17 12:00 80 05/06/17 12:00 98.6 80 29 154/74 (100) 96 05/06/17 08:00 97.3 70 22 177/84 (115) 98 05/06/17 08:00 74 05/06/17 06:00 65 05/06/17 05:00 72 05/06/17 04:00 81 05/06/17 04:00 98.3 72 18 162/70 (100) 98 05/06/17 03:00 76 05/06/17 02:00 68 05/06/17 01:00 74 05/06/17 00:00 80 05/06/17 00:00 98.1 68 20 158/88 (111) 98 05/05/17 20:00 98.4 64 18 170/84 (112) 98 05/05/17 19:50 99 21 05/05/17 18:12 93 21 05/05/17 16:30 63 05/05/17 16:20 98.1 62 24 145/71 (95) 96 I/O 05/05/17 05/05/17 05/05/17 05/06/17 05/06/17 05/06/17 07:00 15:00 23:00 07:00 15:00 23:00 Intake Total 325 ml Output Total 200 ml 1250 ml 602 ml Balance -200 ml -925 ml -602 ml Intake Oral 0 ml IV Total 325 ml Output Urine Total 200 ml 1250 ml 600 ml Stool Total 0 ml 2 ml Bladder Scan Volume Amount 107 ml # Voids 1 1 6 Result Diagram: 05/05/17 1450 05/05/17 1030 Objective Remarks GENERAL: Well-nourished, well-developed patient. SKIN: Warm and dry. HEAD: Normocephalic. EYES: No scleral icterus. No injection or drainage. NECK: Supple, trachea midline. No JVD or lymphadenopathy. CARDIOVASCULAR: Regular rate and rhythm without murmurs, gallops, or rubs. RESPIRATORY: Breath sounds equal bilaterally. No accessory muscle use. GASTROINTESTINAL: Abdomen soft, non-tender, nondistended. EXTREMITIES: No cyanosis, or edema. NEUROLOGICAL: Awake, alert, and oriented x 3. Face is symmetric. Speech is within normal limits. Equal youth minister strength and shoulder shrug. 5 out of 5 dorsi and plantar flexion bilaterally. A/P Problem List: (1) Facial droop ICD Code: R29.810 - Facial weakness (2) Unsteadiness on feet ICD Code: R26.81 - Unsteadiness on feet Status: Acute (3) CVA (cerebral vascular accident) ICD Code: I63.9 - Cerebral infarction, unspecified Status: Acute (4) Occlusion and stenosis of right carotid artery ICD Code: I65.21 - Occlusion and stenosis of right carotid artery Status: Acute (5) Hypertension ICD Code: I10 - Hypertension Status: Chronic Assessment and Plan Mr. Mendenhall is a 81-year-old male patient with a known medical history of hyperlipemia, HTN and history of CVA on plavix who presented with new onset of facial droop and gait unsteadiness. -Multiple acute CVA in thte right MCA distribution - secondary to right carotid artery stenosis which is now occluded. -on heparin drip and coumadin - DC heparin when INR 1.9 -neurology ff Dr. You - discussed patient with him today -patient at times gets agitated but calms with present - avoid ativan or sedation -NSR on telemetry. Holter pending. -Head MRA showed some flow in the R MCA Supplemental O2 to keep sats >92%. Supportive care. Lipid profile with LDL 115 - cont statin, change ECHO showed preserved LVEF, mild MV regurg, no LV clot [place] soft diet with ST PT/OT Left foot injury several weeks ago left foot x-ray negative for fx. Follow results. Supportive care. Hypertension, chronic: Systoic BP 150's-160's, allow some permissive hypertension. Hold home BP medications at this time and continue to monitor. avoid hypotension due to the acute r ICA occlusion, may start to slowly add back BP meds tomorrow. DVT Prophylaxis: SCDs. Lovenox. D/w at bedside. Patient will require SNF. Problem Qualifiers (1) CVA (cerebral vascular accident): Qualified Codes: I63.411 - Cerebral infarction due to embolism of right middle cerebral artery Josephine Rodriguez MD May 06, 2017 16:01
--- NOTE | 2017-05-06 16:08 | HHI.PR ---
Subjective Remarks sr Objective Vital Signs Date Time Temp Pulse Resp B/P (MAP) Pulse Ox O2 Delivery O2 Flow Rate FiO2 05/06/17 12:00 80 05/06/17 12:00 98.6 80 29 154/74 (100) 96 05/06/17 08:00 97.3 70 22 177/84 (115) 98 05/06/17 08:00 74 05/06/17 06:00 65 05/06/17 05:00 72 05/06/17 04:00 81 05/06/17 04:00 98.3 72 18 162/70 (100) 98 05/06/17 03:00 76 05/06/17 02:00 68 05/06/17 01:00 74 05/06/17 00:00 80 05/06/17 00:00 98.1 68 20 158/88 (111) 98 05/05/17 20:00 98.4 64 18 170/84 (112) 98 05/05/17 19:50 99 21 05/05/17 18:12 93 21 05/05/17 16:30 63 05/05/17 16:20 98.1 62 24 145/71 (95) 96 I/O 05/05/17 05/05/17 05/05/17 05/06/17 05/06/17 05/06/17 07:00 15:00 23:00 07:00 15:00 23:00 Intake Total 325 ml Output Total 200 ml 1250 ml 602 ml Balance -200 ml -925 ml -602 ml Intake Oral 0 ml IV Total 325 ml Output Urine Total 200 ml 1250 ml 600 ml Stool Total 0 ml 2 ml Bladder Scan Volume Amount 107 ml # Voids 1 1 6 Result Diagram: 05/05/17 1450 05/05/17 1030 Objective Remarks vff face sym 5/5 bue and ble Assessment and Plan Assessment and Plan imp cta r mca fills well r ica occ left ica nl echo nl on hepand coumadin some confusion ok to floor he can get oob and work with pt keep bp around 140/90 dc hep for inr >1.9 med team to follow coumadin and dc when inr 2.0 PT Jn You MD May 06, 2017 16:08
[2017-05-06] MEDS ORDERED: WARFARIN SOD 2.5 MG TAB PO ONE (16:30)
[2017-05-06] MEDS: WARFARIN SOD 5 MG TAB PO SCH (17:36)
[2017-05-06 18:56] LABS: APTT (PATIENT) 64.1 SEC (24.3-30.1)
[2017-05-06] MEDS: ATORVASTATIN 40 MG TAB PO SCH (21:20)
[2017-05-07] VITALS (22 sets, daily range): BP systolic 117–203; BP diastolic 47–101; PULSE 54–86; RESP 7–32; TEMP 97.4–98.1; O2SAT 96–98
[2017-05-07 00:55] LABS: APTT (PATIENT) 53.9 SEC (24.3-30.1)
[2017-05-07] MEDS: SODIUM CHLOR 0.9% 1000 ML INJ 1,000 ML IV SCH (03:15)
[2017-05-07 05:02] LABS: CHLORIDE 108 MEQ/L (98-107); POTASSIUM 4.1 MEQ/L (3.5-5.1); SODIUM (NA) 140 MEQ/L (136-145)
[2017-05-07 05:05] LABS: PROTHROMBIN TIME - PATIENT 10.7 SEC (9.8-11.6)
[2017-05-07 05:06] LABS: ANION GAP 9 MEQ/L (5-15); BICARBONATE 23.1 MEQ/L (21.0-32.0); BLOOD UREA NITROGEN 11 MG/DL (7-18)
[2017-05-07 05:07] LABS: HEMATOCRIT 47.8 % (39.0-51.0); MEAN CORPUSCULAR HEMOGLOBIN 34.3 PG (27.0-34.0); MEAN CORPUSCULAR HGB CONC 34.3 % (32.0-36.0); PLATELET COUNT 195 TH/MM3 (150-450); RED BLOOD COUNT 4.78 MIL/MM3 (4.50-5.90); RED CELL DISTRIBUTION WIDTH 13.2 % (11.6-17.2); WHITE BLOOD COUNT 10.2 TH/MM3 (4.0-11.0)
[2017-05-07 05:09] LABS: ALT (GPT) 26 U/L (12-78); AST (GOT) 19 U/L (15-37); GLOMERULAR FILTRATION RATE 74 ML/MIN (>89); HEMO FLAGS AUTO DIFF
[2017-05-07 05:11] LABS: TOTAL BILIRUBIN ADULT 1.3 MG/DL (0.2-1.0)
[2017-05-07 05:12] LABS: ALKALINE PHOSPHATASE 50 U/L (45-117)
[2017-05-07 05:47] LABS: EOSINOPHILS 5 % (0-4); NEUTROPHIL # MANUAL DIFF 6.1 TH/MM3 (1.8-7.7); PLATELET ESTIMATE SMEAR NORMAL (NORMAL); PLATELET MORPHOLOGY NORMAL (NORMAL); POLYS (SEG NEUTROPHILS) 60 % (16-70); SCAN/DIFF FINAL DIFF MANUAL; WBC DIFF SAMPLE 100
[2017-05-07] MEDS: INSULIN ASPART SUPPLEMENTAL SCALE SQ SCH (08:00)
[2017-05-07] MEDS: LABETALOL HCL 100 MG/20 ML VIAL IV SCH ×2 (08:45→09:00)
[2017-05-07] MEDS ORDERED: ENALAPRILAT 2.5 MG/2 ML VIAL IV PUSH PRN ×2 (08:45→17:00)
[2017-05-07] MEDS: SODIUM CHLORIDE 0.9% FLUSH 5 ML FLUSH IV FLUSH SCH ×2 (09:00→21:00)
[2017-05-07 09:03] LABS: APTT (PATIENT) 55.3 SEC (24.3-30.1)
[2017-05-07] MEDS: HEPARIN-D5W 25,000 U/250 ML 250 ML IV PRN (10:42)
[2017-05-07] MEDS ORDERED: WARFARIN SOD 2.5 MG TAB PO ONE (16:00)
--- NOTE | 2017-05-07 16:56 | HHI.PR ---
Subjective Remarks Follow-up acute CVA 05/07/17-patient seen and examined, stable and no complaints today. Objective Vitals Vital Signs Date Time Temp Pulse Resp B/P (MAP) Pulse Ox O2 Delivery O2 Flow Rate FiO2 05/07/17 14:00 70 24 152/74 (100) 05/07/17 13:00 60 19 160/75 (103) 05/07/17 12:00 72 22 177/71 (106) 05/07/17 10:00 76 25 168/71 (103) 05/07/17 09:05 78 32 186/92 (123) 05/07/17 09:00 72 30 197/90 (125) 05/07/17 08:00 98.1 72 25 166/80 (108) 05/07/17 08:00 97 21 05/07/17 07:36 82 31 185/89 (121) 05/07/17 07:31 72 25 203/70 (114) 05/07/17 07:00 76 24 160/77 (104) 05/07/17 04:18 74 25 171/90 (117) 05/07/17 04:09 86 31 183/101 (128) 05/07/17 04:00 60 05/07/17 00:00 82 05/07/17 00:00 97.9 70 21 171/70 (103) 96 05/06/17 23:37 78 32 180/87 (118) 95 05/06/17 22:00 60 18 160/84 (109) 96 05/06/17 20:00 98.5 70 20 170/70 (103) 95 05/06/17 20:00 70 05/06/17 19:50 95 21 I/O 05/06/17 05/06/17 05/06/17 05/07/17 05/07/17 05/07/17 06:59 14:59 22:59 06:59 14:59 22:59 Intake Total 2585 ml 1340 ml Output Total 602 ml 800 ml Balance -602 ml 2585 ml 540 ml Intake Oral 122 ml IV Total 2463 ml 1340 ml Output Urine Total 600 ml 800 ml Stool Total 2 ml # Voids 4 # Bowel Movements 1 1 Result Diagram: 05/07/17 0440 05/07/17 0440 Imaging Last Impressions Neck CTA 05/05/17 1433 Signed Impressions: Service Date/Time: Friday, May 05, 2017 15:00 - CONCLUSION: Right internal carotid artery is occluded in the neck. No evidence for hemodynamically significant stenosis of the left internal carotid artery. Samuel Morales MD Head CTA 05/05/17 1433 Signed Impressions: Service Date/Time: Friday, May 05, 2017 15:00 - CONCLUSION: Extracranial occlusion of the right internal carotid artery. Modestly decreased filling of the right middle cerebral artery. Naresh Lr MD Head Magnetic Resonance Angiography 05/05/17 0000 Signed Impressions: Service Date/Time: Friday, May 05, 2017 12:43 - CONCLUSION: Right internal carotid artery near occlusion with some flow noted in the right middle cerebral artery Samuel Morales MD Foot X-Ray 05/05/17 0000 Signed Impressions: Service Date/Time: Friday, May 05, 2017 11:51 - CONCLUSION: No acute fracture identified. Charly Sifuentes MD Carotid Artery Ultrasound 05/05/17 0000 Signed Impressions: Service Date/Time: Friday, May 05, 2017 11:25 - CONCLUSION: No flow identified in the right internal carotid artery suggesting occlusion at its origin. No evidence of hemodynamically significant stenosis on the left. Charly Sifuentes MD Brain MRI 05/05/17 0000 Signed Impressions: Service Date/Time: Friday, May 05, 2017 12:43 - CONCLUSION: Multiple foci of acute infarct involving the right MCA distribution, most prominent centrally at the basal ganglia region. No evidence of midline shift. No evidence of hemorrhage. Charly Sifuentes MD Head CT 05/04/17 1303 Signed Impressions: Service Date/Time: Thursday, May 04, 2017 13:38 - CONCLUSION: 1. No acute hemorrhage or mass effect. 2. Old small lacunar infarcts in the basal ganglia. Isaías Cazares MD Objective Remarks GENERAL: NAD SKIN: Warm and dry. HEAD: Normocephalic. EYES: No scleral icterus. No injection or drainage. NECK: Supple, trachea midline. No JVD or lymphadenopathy. CARDIOVASCULAR: Regular rate and rhythm without murmurs, gallops, or rubs. RESPIRATORY: Breath sounds equal bilaterally. No accessory muscle use. GASTROINTESTINAL: Abdomen soft, non-tender, nondistended. MUSCULOSKELETAL: No cyanosis, or edema. BACK: Nontender without obvious deformity. No CVA tenderness. A/P Problem List: (1) CVA (cerebral vascular accident) ICD Code: I63.9 - Cerebral infarction, unspecified Status: Acute (2) Facial droop ICD Code: R29.810 - Facial weakness (3) Unsteadiness on feet ICD Code: R26.81 - Unsteadiness on feet Status: Acute (4) Occlusion and stenosis of right carotid artery ICD Code: I65.21 - Occlusion and stenosis of right carotid artery Status: Acute (5) Hypertension ICD Code: I10 - Hypertension Status: Chronic Assessment and Plan 81-year-old man with -Multiple acute CVA in thte right MCA distribution - secondary to right carotid artery stenosis which is now occluded. -on heparin drip and Coumadin - -neurology ff Dr. You - cont statin, change PT/OT Left foot injury several weeks ago left foot x-ray negative for fx. Supportive care. Hypertension, chronic: DC permissive hypertension and resume outpatient medication including Norvasc DVT Prophylaxis: SCDs. Lovenox. Problem Qualifiers (1) CVA (cerebral vascular accident): Qualified Codes: I63.411 - Cerebral infarction due to embolism of right middle cerebral artery Keon Hernandez MD May 07, 2017 16:56
--- NOTE | 2017-05-07 16:59 | HM ---
Date Performed: 05/05/2017 Time Performed: 20:29:00 HOOKUP DATE: 05/05/17 08:29:00 PM Sat ANALYSIS START TIME: 05/05/2017 8:34:00 PM ANALYSIS END TIME: 05/06/2017 6:03:06 PM PATIENT AGE: 81 PATIENT HEIGHT PATIENT WEIGHT: 208 DRUG LIST PATIENT DIAGNOSIS: Ischemic CVA TEST NARRATIVE: The patient's average heart rate was 73 BPM. Heart rates greater than 120 B PM were noted 1% of the time. No episodes of bradycardia were noted. No pauses exceeding 2.0 sec onds were noted. 1020 ventricular ectopics, which represented 1% of the total beat count, were no dominik. The highest ventricular ectopic frequency occurred from 10:00 AM to 11:00 AM Sun. During this time 121 VE(s) occurred. Ventricular ectopics were observed as 1016 isolated beat(s) and as 2 couple t(s). No runs were noted. Some of the ventricular beats occurred in bigeminal cycles. 919 supra ventricular ectopics, which represented 1% of the total beat count, were noted. The highest supraven tricular ectopic frequency occurred from 10:00 AM to 11:00 AM Sun. During this time 141 SVE(s) occur red. No episodes of ST depression (defined as -1.0 mm or more) were noted in channel 1. No episo koffi of ST depression (defined as -1.0 mm or more) were noted in channel 2. No episodes of ST depress ion (defined as -1.0 mm or more) were noted in channel 3. TEST INTERPRETATION: Patient was monitored for 21 hours and 29 minutes. Patient was in normal Si nus rhythm with an average HR of 72 bpm. Periods of sinus bradycardia to 52 bpm at 0052. Maximum HR of 121 bpm. 1016 PVCs, 13 cycles of ventricular bigeminy. 2 ventricular couplets. 866 PACs. Also note presence o f blocked PACs. Periods of SVT to 141 bpm. There is significant baseline artifact, making it difficul t to determine whether this is sinus tachycardia or alternative etiology of SVT. Clinical correlation is recommended. Review of additional runs of SVT to 140 bpm with less artifact show possible p aves, so its indeterminant if this is SVT with retrograde p waves due to AVNRT or sinus tachycardia. Signed by : Godfrey Arriaga
[2017-05-07] MEDS ORDERED: RESP: ALBUTEROL 2.5 MG/IPRATROPIUM 0.5 MG NEB (PRN) NEB (17:00)
[2017-05-07] MEDS: WARFARIN SOD 5 MG TAB PO SCH (17:08)
[2017-05-07] MEDS ORDERED: LABETALOL HCL 100 MG/20 ML VIAL IV PRN (19:45)
[2017-05-07] MEDS: ATORVASTATIN 40 MG TAB PO SCH (21:30)
[2017-05-08] VITALS (12 sets, daily range): BP systolic 128–191; BP diastolic 57–92; PULSE 56–68; RESP 10–26; TEMP 97.9–98.6; O2SAT 95–98
[2017-05-08 04:52] LABS: HEMATOCRIT 44.2 % (39.0-51.0); MEAN CELL VOLUME 101.4 FL (80.0-100.0); MEAN CORPUSCULAR HEMOGLOBIN 34.3 PG (27.0-34.0); MEAN CORPUSCULAR HGB CONC 33.8 % (32.0-36.0); PLATELET COUNT 160 TH/MM3 (150-450); RED BLOOD COUNT 4.36 MIL/MM3 (4.50-5.90); RED CELL DISTRIBUTION WIDTH 13.5 % (11.6-17.2); REVIEW FLAG FINAL; WHITE BLOOD COUNT 3.3 TH/MM3 (4.0-11.0)
[2017-05-08 06:18] LABS: INTERNATIONAL NORMALIZED RATIO 1.3 RATIO; PROTHROMBIN TIME - PATIENT 14.2 SEC (9.8-11.6)
[2017-05-08] MEDS: SODIUM CHLORIDE 0.9% FLUSH 5 ML FLUSH IV FLUSH SCH ×2 (08:20→20:35)
[2017-05-08] MEDS: HEPARIN-D5W 25,000 U/250 ML 250 ML IV PRN (09:04)
[2017-05-08] MEDS ORDERED: COUM5TAB PO (12:04)
[2017-05-08] MEDS ORDERED: ATOR40TA16 PO (12:04)
--- NOTE | 2017-05-08 12:15 | HHI.PR ---
Subjective Remarks Follow-up acute CVA 05/07/17-patient seen and examined, stable and no complaints today. 05/08/17-patient seen and examined, denies any chest pain, shortness of breath. by the bedside. INR 1.3 today Objective Vitals Vital Signs Date Time Temp Pulse Resp B/P (MAP) Pulse Ox O2 Delivery O2 Flow Rate FiO2 05/08/17 08:00 96 21 05/08/17 08:00 64 05/08/17 08:00 98.0 64 22 145/73 (97) 95 05/08/17 06:00 60 05/08/17 06:00 60 22 169/69 (102) 05/08/17 05:00 60 10 176/65 (102) 05/08/17 04:00 68 26 191/74 (113) 05/08/17 03:00 98.6 60 16 137/57 (83) 05/08/17 02:00 56 20 154/62 (92) 05/08/17 01:00 97.9 66 23 168/73 (104) 05/08/17 00:00 58 05/08/17 00:00 56 17 172/72 (105) 05/07/17 23:00 54 14 156/74 (101) 05/07/17 22:00 62 31 178/75 (109) 05/07/17 21:00 54 20 192/85 (120) 05/07/17 20:23 98 21 05/07/17 20:00 70 05/07/17 20:00 97.4 66 26 122/82 (95) 05/07/17 19:00 54 16 153/70 (97) 05/07/17 17:00 58 19 117/47 (70) 05/07/17 16:00 97.9 05/07/17 16:00 62 7 163/78 (106) 05/07/17 14:00 70 24 152/74 (100) 05/07/17 13:00 60 19 160/75 (103) I/O 05/07/17 05/07/17 05/07/17 05/08/17 05/08/17 05/08/17 07:00 15:00 23:00 07:00 15:00 23:00 Intake Total 1340 ml 880 ml 1078 ml 283 ml Output Total 800 ml 800 ml Balance 540 ml 880 ml 1078 ml -517 ml Intake Oral 880 ml 240 ml IV Total 1340 ml 838 ml 283 ml Output Urine Total 800 ml 800 ml # Bowel Movements 1 2 Result Diagram: 05/08/17 0433 05/07/17 0440 Imaging Last Impressions Neck CTA 05/05/17 1433 Signed Impressions: Service Date/Time: Friday, May 05, 2017 15:00 - CONCLUSION: Right internal carotid artery is occluded in the neck. No evidence for hemodynamically significant stenosis of the left internal carotid artery. Samuel Morales MD Head CTA 05/05/17 1433 Signed Impressions: Service Date/Time: Friday, May 05, 2017 15:00 - CONCLUSION: Extracranial occlusion of the right internal carotid artery. Modestly decreased filling of the right middle cerebral artery. Naresh Lr MD Head Magnetic Resonance Angiography 05/05/17 0000 Signed Impressions: Service Date/Time: Friday, May 05, 2017 12:43 - CONCLUSION: Right internal carotid artery near occlusion with some flow noted in the right middle cerebral artery Samuel Morales MD Foot X-Ray 05/05/17 0000 Signed Impressions: Service Date/Time: Friday, May 05, 2017 11:51 - CONCLUSION: No acute fracture identified. Charly Sifuentes MD Carotid Artery Ultrasound 05/05/17 0000 Signed Impressions: Service Date/Time: Friday, May 05, 2017 11:25 - CONCLUSION: No flow identified in the right internal carotid artery suggesting occlusion at its origin. No evidence of hemodynamically significant stenosis on the left. Charly Sifuentes MD Brain MRI 05/05/17 0000 Signed Impressions: Service Date/Time: Friday, May 05, 2017 12:43 - CONCLUSION: Multiple foci of acute infarct involving the right MCA distribution, most prominent centrally at the basal ganglia region. No evidence of midline shift. No evidence of hemorrhage. Charly Sifuentes MD Head CT 05/04/17 1303 Signed Impressions: Service Date/Time: Thursday, May 04, 2017 13:38 - CONCLUSION: 1. No acute hemorrhage or mass effect. 2. Old small lacunar infarcts in the basal ganglia. Isaías Cazares MD Objective Remarks GENERAL: NAD SKIN: Warm and dry. HEAD: Normocephalic. EYES: No scleral icterus. No injection or drainage. NECK: Supple, trachea midline. No JVD or lymphadenopathy. CARDIOVASCULAR: Regular rate and rhythm without murmurs, gallops, or rubs. RESPIRATORY: Breath sounds equal bilaterally. No accessory muscle use. GASTROINTESTINAL: Abdomen soft, non-tender, nondistended. MUSCULOSKELETAL: No cyanosis, or edema. BACK: Nontender without obvious deformity. No CVA tenderness. Procedures none A/P Problem List: (1) CVA (cerebral vascular accident) ICD Code: I63.9 - Cerebral infarction, unspecified Status: Acute (2) Facial droop ICD Code: R29.810 - Facial weakness (3) Unsteadiness on feet ICD Code: R26.81 - Unsteadiness on feet Status: Acute (4) Occlusion and stenosis of right carotid artery ICD Code: I65.21 - Occlusion and stenosis of right carotid artery Status: Acute (5) Hypertension ICD Code: I10 - Hypertension Status: Chronic Assessment and Plan 81-year-old man with -Multiple acute CVA in thte right MCA distribution - secondary to right carotid artery stenosis which is now occluded. -on heparin drip and Coumadin - continue heparin drip for INR>1.9 -neurology ff Dr. You - cont statin PT/OT Left foot injury several weeks ago left foot x-ray negative for fx. Supportive care. Hypertension, chronic: s/p permissive hypertension and continue outpatient medication including Norvasc and add losartan DVT Prophylaxis: SCDs. Lovenox. Problem Qualifiers (1) CVA (cerebral vascular accident): Qualified Codes: I63.411 - Cerebral infarction due to embolism of right middle cerebral artery Keon Hernandez MD May 08, 2017 12:15
--- NOTE | 2017-05-08 12:18 | HHI.DS ---
Discharge Summary Admission Date May 05, 2017 at 14:09 Discharge Date: May 08, 2017 Admitting Diagnosis Ischemic CVA (1) CVA (cerebral vascular accident) ICD Code: I63.9 - Cerebral infarction, unspecified Status: Acute (2) Facial droop ICD Code: R29.810 - Facial weakness (3) Unsteadiness on feet ICD Code: R26.81 - Unsteadiness on feet Status: Acute (4) Occlusion and stenosis of right carotid artery ICD Code: I65.21 - Occlusion and stenosis of right carotid artery Status: Acute (5) Hypertension ICD Code: I10 - Hypertension Status: Chronic Procedures none Brief History - From Admission Written by Cynthia Dye, acting as scribe for Dr. Rodriguez on 05/05/17 at 0900. Mr. Mendenhall is a 81-year-old male patient with a known medical history of hyperlipemia, HTN and history of CVA who presented with new onset of facial droop and unsteadiness. Patient states that roughly a month ago he was working on his dock and dropped something on his left foot causing a large hematoma. Patient states he went to his doctor and imaging was performed showing a fracture with no recommendations for surgical intervention. At that time no boot or interventions were initiated. Patient has for the past 3-4 weeks fallen roughly 12 times at home due to unsteadiness and "his foot getting caught". He denies any associated lightheadedness, dizziness, MOISE, blurry vision, diplopia during these falls. Denies ever hitting his head or loosing consciousness. Patient has noticed within the last couple days his left foot "getting caught" more often and has developed a left sided facial droop with left sided weakness which prompted his presentation to the ED. He states that he does not know what has been happening but he feels overall "clumsy" in both fine and gross motor movements and activities. Denies any recent illness including fever, chills, cough, shortness of breath, chest pain, nausea, vomiting, abdominal pain, or dysuria. Denies any changes in his prescribed medications. He does say he has had a diagnosis of dyslipidemia but has not been taking his statin therapy due to musculoskeletal side effects. CBC/BMP: 05/08/17 0433 05/07/17 0440 Significant Findings Laboratory Tests Test 05/05/17 14:50 05/05/17 22:36 05/06/17 05:10 05/06/17 10:55 White Blood Count 2.8 TH/MM3 (4.0-11.0) Red Blood Count 4.35 MIL/MM3 (4.50-5.90) Mean Corpuscular Volume 100.3 FL (80.0-100.0) Mean Platelet Volume 6.6 FL (7.0-11.0) Activated Partial Thromboplast Time 41.8 SEC (24.3-30.1) 38.7 SEC (24.3-30.1) 39.1 SEC (24.3-30.1) Prothrombin Time 13.9 SEC (9.8-11.6) Test 05/06/17 18:10 05/07/17 00:22 05/07/17 04:40 05/07/17 08:30 Activated Partial Thromboplast Time 64.1 SEC (24.3-30.1) 53.9 SEC (24.3-30.1) 55.3 SEC (24.3-30.1) Mean Corpuscular Hemoglobin 34.3 PG (27.0-34.0) Monocytes % 11 % (0-8) Eosinophils % 5 % (0-4) Total Bilirubin 1.3 MG/DL (0.2-1.0) Chloride Level 108 MEQ/L (98-107) Estimat Glomerular Filtration Rate 74 ML/MIN (>89) Test 05/08/17 04:33 05/08/17 05:30 05/08/17 10:50 White Blood Count 3.3 TH/MM3 (4.0-11.0) Red Blood Count 4.36 MIL/MM3 (4.50-5.90) Mean Corpuscular Volume 101.4 FL (80.0-100.0) Mean Corpuscular Hemoglobin 34.3 PG (27.0-34.0) Mean Platelet Volume 6.9 FL (7.0-11.0) Prothrombin Time 14.2 SEC (9.8-11.6) Activated Partial Thromboplast Time 99.0 SEC (24.3-30.1) Imaging Last Impressions Brain MRI 05/08/17 0000 Signed Impressions: Service Date/Time: Monday, May 08, 2017 21:23 - CONCLUSION: Stable appearance to the acute right MCA infarctions. No evidence of acute blood products. Scott Dupree MD Neck CTA 05/05/17 1433 Signed Impressions: Service Date/Time: Friday, May 05, 2017 15:00 - CONCLUSION: Right internal carotid artery is occluded in the neck. No evidence for hemodynamically significant stenosis of the left internal carotid artery. Samuel Morales MD Head CTA 05/05/17 1433 Signed Impressions: Service Date/Time: Friday, May 05, 2017 15:00 - CONCLUSION: Extracranial occlusion of the right internal carotid artery. Modestly decreased filling of the right middle cerebral artery. Naresh Lr MD Head Magnetic Resonance Angiography 05/05/17 0000 Signed Impressions: Service Date/Time: Friday, May 05, 2017 12:43 - CONCLUSION: Right internal carotid artery near occlusion with some flow noted in the right middle cerebral artery Samuel Morales MD Foot X-Ray 05/05/17 0000 Signed Impressions: Service Date/Time: Friday, May 05, 2017 11:51 - CONCLUSION: No acute fracture identified. Charly Sifuentes MD Carotid Artery Ultrasound 05/05/17 0000 Signed Impressions: Service Date/Time: Friday, May 05, 2017 11:25 - CONCLUSION: No flow identified in the right internal carotid artery suggesting occlusion at its origin. No evidence of hemodynamically significant stenosis on the left. Charly Sifuentes MD Head CT 05/04/17 1303 Signed Impressions: Service Date/Time: Thursday, May 04, 2017 13:38 - CONCLUSION: 1. No acute hemorrhage or mass effect. 2. Old small lacunar infarcts in the basal ganglia. Isaías Cazares MD Last Impressions Neck CTA 05/05/17 1433 Signed Impressions: Service Date/Time: Friday, May 05, 2017 15:00 - CONCLUSION: Right internal carotid artery is occluded in the neck. No evidence for hemodynamically significant stenosis of the left internal carotid artery. Samuel Morales MD Head CTA 05/05/17 1433 Signed Impressions: Service Date/Time: Friday, May 05, 2017 15:00 - CONCLUSION: Extracranial occlusion of the right internal carotid artery. Modestly decreased filling of the right middle cerebral artery. Naresh Lr MD Head Magnetic Resonance Angiography 05/05/17 0000 Signed Impressions: Service Date/Time: Friday, May 05, 2017 12:43 - CONCLUSION: Right internal carotid artery near occlusion with some flow noted in the right middle cerebral artery Samuel Morales MD Foot X-Ray 05/05/17 0000 Signed Impressions: Service Date/Time: Friday, May 05, 2017 11:51 - CONCLUSION: No acute fracture identified. Charly Sifuentes MD Carotid Artery Ultrasound 05/05/17 0000 Signed Impressions: Service Date/Time: Friday, May 05, 2017 11:25 - CONCLUSION: No flow identified in the right internal carotid artery suggesting occlusion at its origin. No evidence of hemodynamically significant stenosis on the left. Charly Sifuentes MD Brain MRI 05/05/17 0000 Signed Impressions: Service Date/Time: Friday, May 05, 2017 12:43 - CONCLUSION: Multiple foci of acute infarct involving the right MCA distribution, most prominent centrally at the basal ganglia region. No evidence of midline shift. No evidence of hemorrhage. Charly Sifuentes MD Head CT 05/04/17 1303 Signed Impressions: Service Date/Time: Thursday, May 04, 2017 13:38 - CONCLUSION: 1. No acute hemorrhage or mass effect. 2. Old small lacunar infarcts in the basal ganglia. Isaías Cazares MD PE at Discharge GENERAL: NAD with facial drop SKIN: Warm and dry. HEAD: Normocephalic. EYES: No scleral icterus. No injection or drainage. NECK: Supple, trachea midline. No JVD or lymphadenopathy. CARDIOVASCULAR: Regular rate and rhythm without murmurs, gallops, or rubs. RESPIRATORY: Breath sounds equal bilaterally. No accessory muscle use. GASTROINTESTINAL: Abdomen soft, non-tender, nondistended. MUSCULOSKELETAL: No cyanosis, or edema. BACK: Nontender without obvious deformity. No CVA tenderness. Hospital Course Patient admitted with Multiple acute CVA in the right MCA distribution - secondary to right carotid artery stenosis which is now occluded. For which neurology was consulted and he was started on heparin drip and Coumadin - Heparin drip was discontinued . Physical therapy was consulted . permissive hypertension was discontinued and his oral antihypertensive medication were resumed. Physical therapy and OT were all consulted. He will be discharged to [facility] on IVF hydration x 2 days then discontinue Pt Condition on Discharge: Fair Discharge Disposition: Rehab Inpatient Discharge Time: > 30 minutes Discharge Instructions DIET: Follow Instructions for: Heart Healthy Diet Activities you can perform: Regular-No Restrictions Follow up Referrals: Neurology PCP Follow-up - 2-3 Days New Medications: Atorvastatin (Atorvastatin) 40 Mg Tab 80 MG PO HS for Cholesterol Management, #30 TAB 11 Refills Warfarin (Coumadin) 5 Mg Tab 5 MG PO DAILY@1600 for Prevent Blood Clot, #30 TAB Continued Medications: Amlodipine (Amlodipine) 10 Mg Tab 10 MG PO DAILY for Blood Pressure Management, #30 TAB 0 Refills Losartan (Losartan) 50 Mg Tab 50 MG PO DAILY for Blood Pressure Management, #30 TAB 0 Refills Discontinued Medications: Clopidogrel (Clopidogrel) 75 Mg Tab 75 MG PO DAILY for Blood Clot Prevention, #30 TAB 0 Refills Keon Hernandez MD May 08, 2017 12:18
[2017-05-08 12:41] LABS: C. DIFF EPI 027 PRESUMPTIVE NEGATIVE (NEGATIVE)
[2017-05-08] MEDS: LOSARTAN 50 MG TAB PO SCH (13:00)
[2017-05-08 13:45] LABS: APTT (PATIENT) 76.7 SEC (24.3-30.1)
[2017-05-08] MEDS ORDERED: WARFARIN SOD 7.5 MG TAB PO ONE (16:00)
[2017-05-08] MEDS ORDERED: SODIUM CHLOR 0.9% 1000 ML INJ 1,000 ML IV SCH (17:52)
--- NOTE | 2017-05-08 18:00 | HHI.PR ---
Subjective Remarks sr Objective Vital Signs Date Time Temp Pulse Resp B/P (MAP) Pulse Ox O2 Delivery O2 Flow Rate FiO2 05/08/17 16:00 97.9 65 18 128/70 (89) 95 05/08/17 16:00 60 05/08/17 12:00 68 05/08/17 12:00 98.2 68 20 138/67 (90) 96 05/08/17 08:00 96 21 05/08/17 08:00 64 05/08/17 08:00 98.0 64 22 145/73 (97) 95 05/08/17 06:00 60 05/08/17 06:00 60 22 169/69 (102) 05/08/17 05:00 60 10 176/65 (102) 05/08/17 04:00 68 26 191/74 (113) 05/08/17 03:00 98.6 60 16 137/57 (83) 05/08/17 02:00 56 20 154/62 (92) 05/08/17 01:00 97.9 66 23 168/73 (104) 05/08/17 00:00 58 05/08/17 00:00 56 17 172/72 (105) 05/07/17 23:00 54 14 156/74 (101) 05/07/17 22:00 62 31 178/75 (109) 05/07/17 21:00 54 20 192/85 (120) 05/07/17 20:23 98 21 05/07/17 20:00 70 05/07/17 20:00 97.4 66 26 122/82 (95) 05/07/17 19:00 54 16 153/70 (97) I/O 05/07/17 05/07/17 05/07/17 05/08/17 05/08/17 05/08/17 07:00 15:00 23:00 07:00 15:00 23:00 Intake Total 1340 ml 880 ml 1078 ml 283 ml Output Total 800 ml 800 ml Balance 540 ml 880 ml 1078 ml -517 ml Intake Oral 880 ml 240 ml IV Total 1340 ml 838 ml 283 ml Output Urine Total 800 ml 800 ml # Bowel Movements 1 2 Result Diagram: 05/08/17 0433 05/07/17 0440 Objective Remarks vff face left droop mod severe 5/5 bue and ble x left finger ext 4+ some lle ataxia ox3 Assessment and Plan Assessment and Plan imp cta r mca fills well r ica occ left ica nl echo nl on hep and coumadin inr 1.3 some confusion keep bp higher for now as some progerssion of facial droop dc hep for inr >1.9 med team to follow coumadin and dc heparin when inr 2.0 PT recheck mri with facial droop inc Jn You MD May 08, 2017 18:00
[2017-05-08 18:44] LABS: APTT (PATIENT) 43.3 SEC (24.3-30.1)
[2017-05-08] MEDS ORDERED: LORazepam 2 MG/ML VIAL IV PUSH PRN (20:30)
[2017-05-08] MEDS ORDERED: LORazepam 2 MG/ML VIAL IV PUSH ONE (20:30)
[2017-05-08] MEDS ORDERED: LORazepam 2 MG/ML VIAL IM ONE (20:30)
[2017-05-08] MEDS: ATORVASTATIN 40 MG TAB PO SCH (20:34)
--- NOTE | 2017-05-08 22:20 | RADRPT ---
EXAM DATE/TIME: 05/08/2017 21:23 [place] COMPARISON: MRI BRAIN W/O CONTRAST, May 05, 2017, 12:43. INDICATIONS : CVA. MEDICAL HISTORY : Cerebrovascular disease. Hypertension. SURGICAL HISTORY : Carotid endarterectomy. ENCOUNTER: Subsequent ACUITY: 4-6 days PAIN SCORE: 3/10 LOCATION: cranial TECHNIQUE: Multiplanar, multisequence MRI of the brain was performed without contrast. FINDINGS: Prior MRI on 05/05/17 had demonstrated multifocal acute infarcts in the right MCA distribution. On t vita's examination, multifocal areas of restricted diffusion in the right MCA distribution are very s imilar to prior MRI. Confluent areas of T2 prolongation in the supratentorial white matter, right gr eater than left, stable from prior. No evidence of acute blood products. No evidence of mass effect . Stable moderate central and cortical atrophy. The visualized posterior fossa structures are gross ly unremarkable. CONCLUSION: Stable appearance to the acute right MCA infarctions. No evidence of acute blood products. Scott Dupree MD on May 08, 2017 at 22:16 Board Certified Radiologist. This report was verified electronically.
[2017-05-09] VITALS (12 sets, daily range): BP systolic 147–211; BP diastolic 64–92; PULSE 53–72; RESP 16–27; TEMP 97.7; O2SAT 96–98
[2017-05-09 00:56] LABS: APTT (PATIENT) 41.6 SEC (24.3-30.1)
[2017-05-09 05:17] LABS: INTERNATIONAL NORMALIZED RATIO 1.9 RATIO; PROTHROMBIN TIME - PATIENT 21.8 SEC (9.8-11.6)
[2017-05-09 06:43] LABS: APTT (PATIENT) 42.2 SEC (24.3-30.1)
[2017-05-09] MEDS: LOSARTAN 50 MG TAB PO SCH (07:42)
[2017-05-09] MEDS: SODIUM CHLORIDE 0.9% FLUSH 5 ML FLUSH IV FLUSH SCH (07:42)
--- NOTE | 2017-05-09 08:24 | HHI.PR ---
Subjective Remarks sr Objective Vital Signs Date Time Temp Pulse Resp B/P (MAP) Pulse Ox O2 Delivery O2 Flow Rate FiO2 05/09/17 08:00 66 05/09/17 04:00 54 05/09/17 04:00 97.7 55 27 169/78 (108) 98 05/09/17 00:00 53 05/09/17 00:00 57 16 173/64 (100) 96 05/08/17 20:20 98 21 05/08/17 20:00 58 05/08/17 20:00 98.2 58 22 180/92 (121) 96 05/08/17 16:00 97.9 65 18 128/70 (89) 95 05/08/17 16:00 60 05/08/17 12:00 68 05/08/17 12:00 98.2 68 20 138/67 (90) 96 I/O 05/08/17 05/08/17 05/08/17 05/09/17 05/09/17 05/09/17 07:00 15:00 23:00 07:00 15:00 23:00 Intake Total 283 ml 800 ml 992 ml Output Total 800 ml Balance -517 ml 800 ml 992 ml Intake Oral 800 ml 120 ml IV Total 283 ml 872 ml Output Urine Total 800 ml # Voids 4 6 # Bowel Movements 2 2 2 Result Diagram: 05/08/17 0433 05/07/17 0440 Objective Remarks vff face left droop mod severe 5/5 bue and ble x left finger ext 4+ some lle ataxia ox3 05/09/17 i dw nursing moving left well Assessment and Plan Assessment and Plan imp cta r mca fills well r ica occ left ica nl echo nl on hep and coumadin inr 1.3 some confusion keep bp higher for now as some progerssion of facial droop dc hep for inr >1.9 med team to follow coumadin and dc heparin when inr 2.0 PT recheck mri with facial droop inc 05/09/17 ok to rehab inr 1.9 dc hep and 2mg coumadin today kepp bp up 180/90-100 for next two days could go to rehab on ivf for next two days to keep perfusion good r ica occlusion mri slight inc size cva normal progression Jn You MD May 09, 2017 08:24
--- NOTE | 2017-05-09 11:54 | HHI.PR ---
Subjective Remarks Follow-up acute CVA 05/07/17-patient seen and examined, stable and no complaints today. 05/08/17-patient seen and examined, denies any chest pain, shortness of breath. by the bedside. INR 1.3 today 05/09/17-patient seen and examined, repeat MRI of the brain stable. Patient's stable and no complaint. INR 1.9 today Objective Vitals Vital Signs Date Time Temp Pulse Resp B/P (MAP) Pulse Ox O2 Delivery O2 Flow Rate FiO2 05/09/17 11:35 98 21 05/09/17 10:26 62 16 147/69 (95) 05/09/17 09:26 66 22 169/77 (107) 05/09/17 08:35 70 24 211/89 (129) 05/09/17 08:09 66 20 185/92 (123) 05/09/17 08:06 72 24 207/84 (125) 05/09/17 08:06 72 24 207/84 (125) 05/09/17 08:00 66 05/09/17 07:44 66 22 198/83 (121) 05/09/17 07:44 66 22 198/83 (121) 05/09/17 07:42 64 26 205/91 (129) 05/09/17 07:42 64 26 205/91 (129) 05/09/17 07:42 97.7 64 26 205/91 (129) 05/09/17 07:00 64 22 05/09/17 07:00 64 22 05/09/17 07:00 64 22 05/09/17 04:00 54 05/09/17 04:00 97.7 55 27 169/78 (108) 98 05/09/17 00:00 53 05/09/17 00:00 57 16 173/64 (100) 96 05/08/17 20:20 98 21 05/08/17 20:00 58 05/08/17 20:00 98.2 58 22 180/92 (121) 96 05/08/17 16:00 97.9 65 18 128/70 (89) 95 05/08/17 16:00 60 05/08/17 12:00 68 05/08/17 12:00 98.2 68 20 138/67 (90) 96 I/O 11/2105/08/17 05/08/17 05/09/17 05/09/17 05/09/17 06:59 14:59 22:59 06:59 14:59 22:59 Intake Total 283 ml 800 ml 992 ml Output Total 800 ml Balance -517 ml 800 ml 992 ml Intake Oral 800 ml 120 ml IV Total 283 ml 872 ml Output Urine Total 800 ml # Voids 4 6 # Bowel Movements 2 2 2 Result Diagram: 05/08/17 0433 05/07/17 0440 Imaging Last Impressions Brain MRI 05/08/17 0000 Signed Impressions: Service Date/Time: Monday, May 08, 2017 21:23 - CONCLUSION: Stable appearance to the acute right MCA infarctions. No evidence of acute blood products. Scott Dupree MD Neck CTA 05/05/17 1433 Signed Impressions: Service Date/Time: Friday, May 05, 2017 15:00 - CONCLUSION: Right internal carotid artery is occluded in the neck. No evidence for hemodynamically significant stenosis of the left internal carotid artery. Samuel Morales MD Head CTA 05/05/17 1433 Signed Impressions: Service Date/Time: Friday, May 05, 2017 15:00 - CONCLUSION: Extracranial occlusion of the right internal carotid artery. Modestly decreased filling of the right middle cerebral artery. Naresh Lr MD Head Magnetic Resonance Angiography 05/05/17 0000 Signed Impressions: Service Date/Time: Friday, May 05, 2017 12:43 - CONCLUSION: Right internal carotid artery near occlusion with some flow noted in the right middle cerebral artery Samuel Morales MD Foot X-Ray 05/05/17 0000 Signed Impressions: Service Date/Time: Friday, May 05, 2017 11:51 - CONCLUSION: No acute fracture identified. Charly Sifuentes MD Carotid Artery Ultrasound 05/05/17 0000 Signed Impressions: Service Date/Time: Friday, May 05, 2017 11:25 - CONCLUSION: No flow identified in the right internal carotid artery suggesting occlusion at its origin. No evidence of hemodynamically significant stenosis on the left. Charly Sifuentes MD Head CT 05/04/17 1303 Signed Impressions: Service Date/Time: Thursday, May 04, 2017 13:38 - CONCLUSION: 1. No acute hemorrhage or mass effect. 2. Old small lacunar infarcts in the basal ganglia. Isaías Cazares MD Objective Remarks GENERAL: NAD SKIN: Warm and dry. HEAD: Normocephalic. EYES: No scleral icterus. No injection or drainage. NECK: Supple, trachea midline. No JVD or lymphadenopathy. CARDIOVASCULAR: Regular rate and rhythm without murmurs, gallops, or rubs. RESPIRATORY: Breath sounds equal bilaterally. No accessory muscle use. GASTROINTESTINAL: Abdomen soft, non-tender, nondistended. MUSCULOSKELETAL: No cyanosis, or edema. BACK: Nontender without obvious deformity. No CVA tenderness. Procedures none A/P Problem List: (1) CVA (cerebral vascular accident) ICD Code: I63.9 - Cerebral infarction, unspecified Status: Acute (2) Facial droop ICD Code: R29.810 - Facial weakness (3) Unsteadiness on feet ICD Code: R26.81 - Unsteadiness on feet Status: Acute (4) Occlusion and stenosis of right carotid artery ICD Code: I65.21 - Occlusion and stenosis of right carotid artery Status: Acute (5) Hypertension ICD Code: I10 - Hypertension Status: Chronic Assessment and Plan 81-year-old man with -Multiple acute CVA in thte right MCA distribution - secondary to right carotid artery stenosis which is now occluded. -on heparin drip and Coumadin - INR>1.9 therefore will d/c Heparin drip -neurology ff Dr. You -Repeat brain MRI 05/08/17 stable - cont statin PT/OT Left foot injury several weeks ago left foot x-ray negative for fx. Supportive care. Hypertension, chronic: Currently on Norvasc and losartan DVT Prophylaxis: SCDs. Lovenox. Problem Qualifiers (1) CVA (cerebral vascular accident): Qualified Codes: I63.411 - Cerebral infarction due to embolism of right middle cerebral artery Keon Hernandez MD May 09, 2017 11:54
[2017-05-09] MEDS ORDERED: WARFARIN SOD 5 MG TAB PO SCH (16:00)
[2017-05-09] MEDS ORDERED: WARFARIN SOD 2 MG TAB PO SCH (16:00)
== END 2017-05-09 11:50 | DRG 66 ==
LOC: PHED 12:46 → PHEDA 14:53 → PH3B 17:13 → OBSVTOIN 05-05 14:09 → PHICU 05-05 16:01
PROVIDERS: ADMIT Hospitalist; ATTEND Hospitalist
DX: I63.231 Cerebral infarction due to unspecified occlusion or stenosis of right carotid arteries (principal); I10 Essential (primary) hypertension; R29.810 Facial weakness; E78.5 Hyperlipidemia, unspecified; Z86.73 Personal history of transient ischemic attack (TIA), and cerebral infarction without residual deficits; Z87.891 Personal history of nicotine dependence; H91.90 Unspecified hearing loss, unspecified ear; F40.240 Claustrophobia
CPT/HCPCS: 70450; 70496; 70498; 70544; 70551; 73630; 80048; 80053; 80061; 82272; 82948; 83036; 84439; 84443; 84484; 85007; 85025; 85027; 85610; 85730; 87493; 93005; 93225; 93226; 93306; 93880; G8987-GO; G8987-GP; G8988-GO; G8988-GP; G8996-GN; G8997-GN; G8998-GN; J1644; J1650; J2060; J7030; Q9967

== ENCOUNTER 2017-07-16 14:12 | Emergency (ER) | payer MEDICARE, BC ==
[~2017-07-16 14:12] MED LIST changes: +ACET325T15 PO; -ACET500T13 PO; +AMLO10 PO; +ATOR40TA16 PO; +BACL10TA PO; -CIPR-9 PO; -CLOP75TA PO; +COUM3TAB PO; +COUM5TAB PO; +COZA50TA PO; +DOCU1CAP39 PO; +FLUO20CA12 PO; -FURO20TA PO; -GABA300C5 PO; +HYDR-3798 PO; +PANT20 PO; +Petrolat-Zinc Barrier Oint TOPICAL; +THIA100 PO; -TRAM50 PO
[2017-07-16 14:21] VITALS: BP 140/55; PULSE 70; RESP 18; TEMP 98.1; O2SAT 98
[2017-07-16] MEDS ORDERED: WARF-20 PO (14:31)
[2017-07-16] MEDS ORDERED: COUM3TAB PO (14:31)
[2017-07-16] MEDS ORDERED: ROPI.5 PO (14:32)
[2017-07-16] MEDS ORDERED: ZANT150T2 PO (14:33)
--- NOTE | 2017-07-16 15:12 | PD ---
HPI . Head injury Chief Complaint: Fall Time Seen by Provider: 15:01 Travel History International Travel<30 days: No Contact w/Intl Traveler<30days: No Traveled to known affect area: No History of Present Illness HPI Patient presents for the evaluation of a head injury. He is on Coumadin. He lost his footing and fell backwards landing on his head. No loss of consciousness. There was no difficulty controlling the bleeding. PFSH Past Medical History Hx Anticoagulant Therapy: Yes (Coumadin ) Arthritis: No Asthma: No Atrial Fibrillation: Yes Autoimmune Disease: No Anxiety: Yes Depression: Yes Heart Rhythm Problems: Yes Cancer: No Cardiovascular Problems: Yes (HTN, high chol.) High Cholesterol: Yes Chest Pain: No Congestive Heart Failure: No COPD: No Cerebrovascular Accident: Yes (06/29/17) Coronary Artery Disease: Yes Diabetes: No Diminished Hearing: Yes Endocrine: No Gastrointestinal Disorders: No Genitourinary: Yes Hepatitis: No Hiatal Hernia: No Hypertension: Yes Immune Disorder: No Implanted Vascular Access Dvce: No Kidney Stones: No Musculoskeletal: No Neurologic: Yes (ECT) Psychiatric: Yes Reproductive: No Respiratory: Yes Immunizations Current: Yes Migraines: No Renal Failure: No Seizures: No Sleep Apnea: No Thyroid Disease: No Tetanus Vaccination: < 5 Years Influenza Vaccination: No Past Surgical History Abdominal Surgery: No AICD: No Arteriovenous Shunt: No Body Medical Devices: DENTAL IMPLANTS-THEY HAVE ALL BEEN REMOVED Cardiac Surgery: Yes (right side carotid endarterectomy) Ear Surgery: No Endocrine Surgery: No Eye Surgery: Yes (Cataract bilateral eyes) Genitourinary Surgery: No Gynecologic Surgery: No Insulin Pump: No Joint Replacement: No Neurologic Surgery: No Oral Surgery: Yes (SINUS SURGERY; DENTAL IMPLANT REMOVAL) Pacemaker: No Thoracic Surgery: No Tonsillectomy: Yes (T & A) Other Surgery: Yes (R BREAST LUMPECTOMY, NASAL PASSAGE SURGERIES,Right Carotid Endarterectomy ) Social History Alcohol Use: No (quit in Apr 2017) Tobacco Use: No (quit 30 yrs ago smoked cigs) Substance Use: No Allergies-Medications (Allergen,Severity, Reaction): Coded Allergies: No Known Allergies (Verified Allergy, Unknown, 07/16/17) Reported Meds & Prescriptions Reported Meds & Active Scripts Active Gnp Vitamin B-1 (Thiamine HCl) 100 Mg Tab 100 Mg PO DAILY 30 Days Fluoxetine (Fluoxetine HCl) 20 Mg Capsule 20 Mg PO DAILY 30 Days Eq Acetaminophen (Acetaminophen) 325 Mg Tab 650 Mg PO Q4H PRN 30 Days Cozaar (Losartan Potassium) 50 Mg Tab 100 Mg PO DAILY 30 Days Norvasc (Amlodipine Besylate) 10 Mg Tab 10 Mg PO DAILY 30 Days Atorvastatin (Atorvastatin Calcium) 40 Mg Tab 80 Mg PO HS Reported Zantac (Ranitidine HCl) 150 Mg Tab 75 Mg PO BID Requip (Ropinirole HCl) 0.5 Mg Tab 0.5 Mg PO BID Warfarin 4 Mg Tab 4 Mg PO WED & SAT Coumadin (Warfarin) 3 Mg Tab 3 Mg PO S, M, T, TH, F Review of Systems Except as stated in HPI: all other systems reviewed are Neg Eyes: No: Blurred Vision HENT: No: Headaches, Lightheadedness Physical Exam Narrative GENERAL: Awake and alert and in no acute distress. SKIN: Warm and dry. Contusion on the vertex of the scalp with some blood in the center. No significant laceration. HEAD: Normocephalic/atraumatic. EYES: Pupils are equal. Extraocular movements are intact. NECK: Normal range of motion. CARDIOVASCULAR: Regular rate and rhythm. RESPIRATORY: Nonlabored respirations. MUSCULOSKELETAL: Atraumatic. NEUROLOGICAL: Nonfocal. PSYCHIATRIC: Appropriate mood and affect. Data Data Last Documented VS Vital Signs Date Time Temp Pulse Resp B/P (MAP) Pulse Ox O2 Delivery O2 Flow Rate FiO2 07/16/17 14:34 Room Air 07/16/17 14:21 98.1 70 18 140/55 (83) [address] Brain W/O Iv Contrast(Rout) (07/16/17 15:01) [facility] Medical Decision Making Medical Screen Exam Complete: Yes Emergency Medical Condition: Yes Differential Diagnosis My differential diagnosis of head trauma includes but is not limited to scalp contusion, concussion, intracerebral hemorrhage. Narrative Course Patient presents for evaluation of injury to his head. The concern is that he is on Coumadin. There was no loss of consciousness and no signs or symptoms of a head injury. He does not sutures. CT of the head is pending. Last Impressions Head CT 07/16/17 1501 Signed Impressions: Service Date/Time: Sunday, July 16, 2017 15:26 - CONCLUSION: Stable appearance with no acute hemorrhage or infarction. Isaías Cazares MD Diagnosis Primary Impression: Scalp contusion Qualified Codes: S00.03XA - Contusion of scalp, initial encounter Patient Instructions: General Instructions, Scalp Contusion in Adults (ED) Disposition: 01 DISCHARGE HOME Condition: Stable Leticia Bryan MD Jul 16, 2017 15:12
--- NOTE | 2017-07-16 15:42 | RADRPT ---
EXAM DATE/TIME: 07/16/2017 15:26 [place] COMPARISON: CT BRAIN W/O CONTRAST, May 24, 2017, 17:08. INDICATIONS : Fall. Hit back of head. RADIATION DOSE: 62.91 CTDIvol (mGy) MEDICAL HISTORY : Cerebrovascular disease. Hypertension. Anticoagulant therapy. SURGICAL HISTORY : Carotid endarterectomy. ENCOUNTER: Initial ACUITY: 1 day PAIN SCALE: 4/10 LOCATION: occipital TECHNIQUE: Multiple contiguous axial images were obtained of the head. Using automated exposure control and adj ustment of the mA and/or kV according to patient size, radiation dose was kept as low as reasonably a chievable to obtain optimal diagnostic quality images. DICOM format image data is available electro nically for review and comparison. FINDINGS: CEREBRUM: The ventricles are normal for age with moderate atrophic change with sulcal and ventricular prominenc e. 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 There is a benign calcification along the right inner temporal bone No evidence of midline shift, mass lesion, hemorrhage or acute in farction. No extra-axial fluid collections are seen. POSTERIOR FOSSA: The cerebellum and brainstem are intact. The 4th ventricle is midline. The cerebellopontine angle i s unremarkable. EXTRACRANIAL: The visualized portion of the orbits is intact. SKULL: The calvaria is intact. No evidence of skull fracture. CONCLUSION: Stable appearance with no acute hemorrhage or infarction. Isaías Cazares MD on July 16, 2017 at 15:35 Board Certified Radiologist. This report was verified electronically.
[2017-07-16 16:42] VITALS: BP 122/58
== END 2017-07-16 16:44 | disposition home or self-care (01) ==
LOC: PHED 14:12
DX: S00.03XA Contusion of scalp, initial encounter (principal); I10 Essential (primary) hypertension; I25.10 Atherosclerotic heart disease of native coronary artery without angina pectoris; E78.00 Pure hypercholesterolemia, unspecified; I48.91 Unspecified atrial fibrillation; W01.0XXA Fall on same level from slipping, tripping and stumbling without subsequent striking against object, initial encounter; F32.9 Major depressive disorder, single episode, unspecified; Z86.73 Personal history of transient ischemic attack (TIA), and cerebral infarction without residual deficits; Z79.01 Long term (current) use of anticoagulants; Z87.891 Personal history of nicotine dependence
CPT/HCPCS: 70450